=== PATIENT | female | born 1930 | race Caucasian/White ===

== ENCOUNTER 2017-04-14 09:35 | Observation (INO) | payer MEDICARE ==
[2017-04-14 10:42] LABS: Hematocrit 32 % (35-47); Hemoglobin 10.5 g/dl (12.0-16.0); Mean Corpuscular HGB Conc 33 g/dl (31-36); Mean Corpuscular Hemoglobin 31 pg (27-31); Mean Corpuscular Volume 94 fL (80-97); Mean Platelet Volume 11 um3 (7.4-10.4); Red Cell Distribution Width 14 % (10.5-15); White Blood Count 10.1 10^3/ul (3.5-10.8)
[2017-04-14 11:01] LABS: Albumin 4.1 g/dL (3.2-5.2); BUN/Creatinine Ratio 24.4 (8-20); Calcium 9.3 mg/dL (8.6-10.3); EGFR African American 84.8 (>60); EGFR Non-African American 65.9 (>60); Globulin 2.8 g/dL (2-4); Potassium 3.3 mmol/L (3.5-5.0); Total Bilirubin 0.4 mg/dL (0.2-1.0); Total Protein 6.9 g/dL (6.4-8.9)
[2017-04-14] MEDS ORDERED: Pantoprazole IV* 40 MG IV ONE (12:06)
[2017-04-14] MEDS ORDERED: Pantoprazole IV* 80 MG in NS 0.9% 250 ML* 250 ML IV SCH (13:00)
[2017-04-14] MEDS ORDERED: Ondansetron INJ* 2 MG/ML VIAL IV PRN (13:07)
[2017-04-14] MEDS ORDERED: Acetaminophen TAB* 325 MG PO PRN (13:07)
[2017-04-14] MEDS ORDERED: Potassium Chlor TAB* 20 MEQ TAB.ER PO ONE (13:10)
[2017-04-14 13:24] LABS: Urine Bacteria Absent (Absent); Urine Bilirubin Negative (Negative); Urine Glucose Negative (Negative); Urine Nitrite Negative (Negative)
[2017-04-14 13:43] LABS: Hematocrit 29 % (35-47); Hemoglobin 9.8 g/dl (12.0-16.0)
[2017-04-14] MEDS ORDERED: Pantoprazole IV* 80 MG in NS 0.9% 250 ML* 250 ML IVPB SCH (14:00)
--- NOTE | 2017-04-14 16:05 | HP ---
SUPERVISING PHYSICIAN ADDENDUM NOW INCLUDED ON THIS REPORT CC: Dr. Castle * ADMISSION HISTORY AND PHYSICAL: DATE OF ADMISSION: 04/14/17 PRIMARY CARE PROVIDER: Dr. Castle. ADMITTING PROVIDER: JAZIEL Jackson. SUPERVISING PHYSICIAN: Dr. Maryann Klein.* (DICTATED BY JAZIEL JACKSON) CHIEF COMPLAINT: Weakness and melena. HISTORY OF PRESENT ILLNESS: This is a very pleasant 86-year-old female with hypertension, hypothyroidism, macular degeneration who was referred from her primary care provider's office after being seen today with complaints of weakness, dizziness, and episode of melena that occurred over the weekend. 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 She has had no associated abdominal pain and no further bowel movement since that time. She has had complaints of weakness and dizziness since that time and had a syncopal episode following that bowel movement on Friday but none since. The patient denies any history of GI bleed. She is on daily aspirin therapy. No recent excessive NSAID use. No other acute symptoms. No recent illness including fever or night sweats. No chest pain or lower extremity edema or shortness of breath. No complaints of palpitations. The patient just has one alcoholic beverage daily and denies any recent binging. PAST MEDICAL HISTORY: 1. Hypertension. 2. Hypothyroidism. 3. Macular degeneration. PAST SURGICAL HISTORY: 1. Hysterectomy. 2. Bladder repair. 3. Bilateral total hip arthroplasty. HOME MEDICATIONS: 1. Vitamin C 500 mg p.o. daily. 2. Captopril 12.5 mg p.o. twice daily. 3. Lasix 20 mg p.o. daily. 4. Garlic 400 mg p.o. daily. 5. Levothyroxine 50 mcg p.o. daily. 6. Multivitamin two tablets p.o. twice daily. 7. Fish oil 1000 mg p.o. daily. 8. Metamucil 1 packet p.o. daily. SOCIAL HISTORY: The patient lives at home with her . 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 She has a glass of wine or other alcoholic beverage with dinner nightly. No significant smoking history. REVIEW OF SYSTEMS: As noted above in HPI. All other systems reviewed and negative. PHYSICAL EXAMINATION GENERAL: This is a very pleasant 86-year-old female accompanied by her who appears to be fatigued but is in no acute distress. INITIAL VITALS: Temperature 96.9 degrees Fahrenheit, pulse 96 beats per minute , respiratory rate 18 per minute, oxygen saturation 98% on room air, blood pressure 141/69 mmHg. Orthostatic vitals, lying position heart rate of 90, blood pressure 130/58; sitting heart rate 93, blood pressure 117/61; standing heart rate 103, blood pressure 129/61. HEENT: Head is normocephalic, atraumatic. Mucous membranes are pink and moist. RESPIRATORY: Lungs are clear to auscultation without wheezes, crackles or rhonchi. CARDIOVASCULAR: Heart has regular rate and rhythm without murmurs, rubs or gallops. ABDOMEN: Soft. Bowel sounds are quiet but present. There is no tenderness to palpation. EXTREMITIES: There is no edema appreciated. SKIN: Limited exam shows no concerning rashes or lesions. LABORATORY EVALUATION: CBC shows a white blood cell count of 10,100, hemoglobin of 10.5, platelet count of 284,000. INR of 0.92 and PTT of 27. Comprehensive metabolic panel shows a sodium of 139, potassium of 3.3, bicarb of 25, BUN of 20, creatinine of 0.82. Total bilirubin and transaminase is within normal limits. Troponin is 0. IMAGING: EKG shows a sinus rhythm without ischemic changes. ASSESSMENT AND PLAN: This is a pleasant 86-year-old female with hypertension, hypothyroidism, macular degeneration, who presents with complaints of weakness and melena admitted with concern for upper GI bleed. 1. Upper GI bleed - the patient's stool is heme positive in the emergency department. Hemoglobin at the time of admission is 10.1. We do not have any prior labs to compare to but she is hemodynamically stable. We will treat with a Protonix drip at this time and maintain a clear liquid diet. Consult call is out to GI for upper endoscopy. We will obtain serial hemoglobins every 6 hours. 2. Hypokalemia - the patient will receive appropriate replacement and plan to repeat the potassium with basic metabolic panel tomorrow. 3. Hypertension - the patient is normotensive at this time. We will hold her antihypertensives including diuretics and ROSE inhibitors in the setting of GI bleed. 4. Hypothyroidism - Plan to continue levothyroxine at current dose. 5. Code status. The patient is full code. 6. DVT prophylaxis. SCDs will be placed for chemical prophylaxis is contraindicated in the setting of acute bleeding. 7. Disposition: The patient is being admitted to observation status for upper GI bleed. I anticipate possible discharge tomorrow. JAZIEL JACKSON ADDENDUM: Mrs. Nichols is an 86-year-old female who presented complaining of melanotic stool today. Her hemoglobin is 10.5 today with unknown baseline. Her stool is heme positive. She had been on aspirin but no history of nonsteroidal antiinflammatory use. She is going to be admitted to the hospital, most likely be seen by GI. For further details of the patient's presentation and plan, please see history and physical dictated by Rahul Navarro on 04/14/17, with which I agree. MARYANN KLEIN MD [id number]/[facility] #: [id number]/[facility]PS #: [id number] JULIET
--- NOTE | 2017-04-14 16:05 | HP ---
HISTORY AND PHYSICAL:* ADDENDUM: Mrs. Nichols is an 86-year-old female who presented complaining of melanotic stool today. Her hemoglobin is 10.5 today with unknown baseline. Her stool is heme positive. She had been on aspirin but no history of nonsteroidal antiinflammatory use. She is going to be admitted to the hospital , most likely be seen by GI. For further details of the patient's presentation and plan, please see history and physical dictated by Rahul Navarro on 04/14/17 , with which I agree. [id number]/[facility] #: [id number] MTDD
--- NOTE | 2017-04-14 16:22 | CONS ---
CONSULTATION REPORT: DATE OF CONSULT: 04/14/17 INDICATION: Melena. NARRATIVE: Ms. Nichols is a very pleasant 86-year-old female with a history of hypertension and hypothyroid who takes a baby aspirin every day who noted melena on Friday. She states it was a very large stool. Since that point, she has felt dizzy and lightheaded. She came to the emergency room because of that. In the emergency room, she was found to have a hemoglobin of 10.5 which has subsequently fallen to 9.8. White count and platelets were normal. She denies any other nonsteroidals. No bright red blood. No nausea or vomiting. No hematemesis. She has never had GI bleeding before. PAST MEDICAL HISTORY: Please see the HPI. SURGICAL HISTORY: Includes hysterectomy. She had a colonoscopy in 2006 which showed sigmoid diverticulosis and a small polyp. MEDICATIONS: Include: 1. Synthroid. 2. Aspirin. 3. Tylenol. FAMILY HISTORY: No GI malignancies in the family. REVIEW OF SYSTEMS: Twelve systems reviewed. Other than that mentioned in the HPI were unremarkable. PHYSICAL EXAM: Vital Signs: Temperature is 98.0, blood pressure 138/81, pulse is 89, respiratory rate is 16, O2 sat is 99%. General: Well-appearing female in no apparent distress. Alert, oriented, pleasant, and fluent. HEENT: Mucous membranes are moist without lesions, ulcers, or exudate. Neck is supple. Trachea is midline. Head is normocephalic, atraumatic. Heart: Regular rate and rhythm. No murmurs. Lungs: Clear to auscultation. Abdomen: Positive bowel sounds. Soft, nontender, nondistended. No hepatosplenomegaly, masses, rebound, or guarding. Musculoskeletal: No CVA or spinal tenderness to palpation. DIAGNOSTIC STUDIES/LAB DATA: Of note, BUN is 20, creatinine 0.82, hemoglobin is 9.8. ASSESSMENT AND PLAN: This is a pleasant 86-year-old female who takes aspirin every day who was found to have melena and a decreased hemoglobin. I do wonder if she could have peptic ulcer disease. She has been started on Protonix already. I will make arrangements for an EGD tomorrow for her. [id number]/[facility] #: [id number] [facility]
[2017-04-14 19:32] LABS: Hematocrit 27 % (35-47); Hemoglobin 8.7 g/dl (12.0-16.0)
[2017-04-14] MEDS: Pantoprazole IV* 80 MG in NS 0.9% 250 ML* 250 ML IVPB SCH (23:34)
[2017-04-15 01:31] LABS: Hematocrit 28 % (35-47); Hemoglobin 9.4 g/dl (12.0-16.0)
[2017-04-15 05:06] LABS: Hematocrit 28 % (35-47); Hemoglobin 9.4 g/dl (12.0-16.0); Mean Corpuscular HGB Conc 33 g/dl (31-36); Mean Corpuscular Hemoglobin 31 pg (27-31); Mean Corpuscular Volume 93 fL (80-97); Mean Platelet Volume 10 um3 (7.4-10.4); Red Blood Count 3.01 10^6/ul (4.0-5.4); Red Cell Distribution Width 14 % (10.5-15); White Blood Count 10.6 10^3/ul (3.5-10.8)
[2017-04-15 05:29] LABS: BUN/Creatinine Ratio 18.7 (8-20); Calcium 8.6 mg/dL (8.6-10.3); EGFR Non-African American 73.1 (>60); Potassium 3.4 mmol/L (3.5-5.0)
[2017-04-15] MEDS ORDERED: Levothyroxine TAB* 50 MCG TAB PO SCH (06:00)
[2017-04-15] MEDS ORDERED: KCL 10 MEQ/50 ML IVPREMIX* 10 MEQ/50 ML BAG IV SCH (09:00)
[2017-04-15] MEDS: Pantoprazole IV* 80 MG in NS 0.9% 250 ML* 250 ML IVPB SCH (10:13)
[2017-04-15] MEDS ORDERED: Meperidine SYRINGE* 50 MG/ML ONE (15:03)
[2017-04-15] MEDS ORDERED: Midazolam* 1 MG/ML 10 ML VIAL (10 MG) ONE (15:03)
[2017-04-15] MEDS ORDERED: Potassium Chlor TAB* 20 MEQ TAB.ER PO ONE (16:24)
[2017-04-15 16:50] VITALS: BP 138/51
--- NOTE | 2017-04-15 23:04 | ED ---
Mandi Nuñez SooYoung, scribed for Shahid Hair MD on 04/14/17 at 1022 . Dizziness - HPI Summary HPI Summary: A 86 y/o F presents to ED referred from PCP with c/o weakness onset two days ago. Associated sx: tarry stools and watery diarrhea two days ago, only 1x and since resolved; syncopal episode from standing shortly after BM two days ago; continued weakness since then. No BM since then. Denies fever, chills, diaphoresis, abd pain, CP. notes she hasn't been eating much over the past two days. Pt takes HTN medication, is not taking blood thinners or NSAIDs. Takes ASA only when she has a MARLOW. Pt had a colonoscopy approx 5-6 years ago, and multiple polyps were removed. 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 Negative: Chest Pain, Fever, Chills - Allergies/Home Medications Allergies/Adverse Reactions: Allergies Allergy/AdvReac Type Severity Reaction Status Date / Time No Known Allergies Allergy Verified 04/14/17 09:45 Home Medications: Home Medications Ascorbic Acid TAB* [Vitamin C TAB*] 500 mg PO DAILY 04/14/17 [History Confirmed 04/14/17] Captopril TAB* [Capoten TAB*] 12.5 mg PO BID 04/14/17 [History Confirmed ] Furosemide TAB* [Lasix TAB*] 20 mg PO DAILY 04/14/17 [History Confirmed 04/14/17 ] Garlic 400 mg PO DAILY 04/14/17 [History Confirmed 04/14/17] Levothyroxine TAB* [Synthroid TAB*] 50 mcg PO DAILY 04/14/17 [History Confirmed 04/14/17] Multiple Vitamins W/ Minerals [Eye Vitamins & Minerals] 2 tab PO BID 04/14/17 [ History Confirmed 04/14/17] Multivitamins/Minerals TAB* [Theragran/minerals TAB*] 1 tab PO DAILY 04/14/17 [ History Confirmed 04/14/17] [place]lock-3 Fatty Acids (Nf) [Fish Oil (NF)] 1,000 mg PO DAILY 04/14/17 [History Confirmed 04/14/17] Psyllium ROBERTO* [Metamucil ROBERTO*] 1 pkt PO DAILY 04/14/17 [History Confirmed ] PMH/Surg Hx/FS Hx/Imm Hx Previously Healthy: No Endocrine/Hematology History: Reports: Hx Thyroid Disease - hypothyroidism Cardiovascular History: Reports: Hx Hypertension - Surgical History Surgery Procedure, Year, and Place: Hysterectomy Infectious Disease History: Denies: Traveled Outside the [place] in Last 30 Days - Family History Known Family History: Positive: Other - neg: colorectal CA - Social History Occupation: Retired Lives: With Family Alcohol Use: Daily Alcohol Amount: one drink with dinner Review of Systems Negative: Fever, Chills Negative: Erythema Negative: Sore Throat Negative: Chest Pain Negative: Shortness Of Breath, Cough Positive: Diarrhea, Other - pos: tarry stools. Negative: Abdominal Pain, Vomiting, Nausea Negative: dysuria, hematuria Negative: Myalgia, Edema Negative: Rash Neurological: Other - neg: dizziness Positive: Weakness, Syncope All Other Systems Reviewed And Are Negative: Yes Physical Exam - Summary Physical Exam Summary: Constitutional: Well-developed, Well-nourished, Alert. (-) Distressed Skin: Warm, Dry HENT: Normocephalic; Atraumatic Eyes: Conjunctiva normal Neck: Musculoskeletal ROM normal neck. (-) JVD, (-) Stridor, (-) Tracheal deviation Cardio: Rhythm regular, rate normal, Heart sounds normal; Intact distal pulses; The pedal pulses are 2+ and symmetric. Radial pulses are 2+ and symmetric. (-) Murmur Pulmonary/Chest wall: Effort normal. (-) Respiratory distress, (-) Wheezes, (-) Rales Abd: Soft, (-) Tenderness, (-) Distension, (-) Guarding, (-) Rebound RECTAL EXAM: PT BRINGS BAG OF MELANOTIC STOOL. NO EXTERNAL HEMORRHOIDS. SCANT AMOUNT OF ABRAM BLOOD ON FINGER. Musculoskeletal: (-) Edema Lymph: (-) Cervical adenopathy Neuro: Alert, Oriented x3 Psych: Mood and affect Normal Triage Information Reviewed: Yes Vital Signs On Initial Exam: Initial Vitals Temp Pulse Resp BP Pulse Ox 96.9 F 96 18 141/69 98 04/14/17 09:40 04/14/17 09:40 04/14/17 09:40 04/14/17 09:40 04/14/17 09:40 Vital Signs Reviewed: Yes Diagnostics - Vital Signs Vital Signs Temp Pulse Resp BP Pulse Ox 04/14/17 09:40 96.9 F 96 18 141/69 98 - Laboratory Lab Results: Lab Results 04/14/17 04/14/17 04/14/17 Range/Units 10:22 10:22 10:22 WBC 10.1 (3.5-10.8) 10^3/ul RBC 3.40 L (4.0-5.4) 10^6/ul Hgb 10.5 L (12.0-16.0) g/dl Hct 32 L (35-47) % MCV 94 (80-97) fL MCH 31 (27-31) pg MCHC 33 (31-36) g/dl RDW 14 (10.5-15) % Plt Count 284 (150-450) 10^3/ul MPV 11 H (7.4-10.4) um3 Neut % (Auto) 64.0 (38-83) % Lymph % (Auto) 25.8 (25-47) % [place] % (Auto) 6.9 (1-9) % Eos % (Auto) 2.1 (0-6) % Baso % (Auto) 1.2 (0-2) % Absolute Neuts (auto) 6.5 (1.5-7.7) 10^3/ul Absolute Lymphs (auto) 2.6 (1.0-4.8) 10^3/ul Absolute Monos (auto) 0.7 (0-0.8) 10^3/ul Absolute Eos (auto) 0.2 (0-0.6) 10^3/ul Absolute Basos (auto) 0.1 (0-0.2) 10^3/ul Absolute Nucleated RBC 0 10^3/ul Nucleated RBC % 0 INR (Anticoag Therapy) 0.92 (0.89-1.11) APTT 27.0 (26.0-36.3) seconds Sodium 139 (133-145) mmol/L Potassium 3.3 L (3.5-5.0) mmol/L Chloride 106 (101-111) mmol/L Carbon Dioxide 25 (22-32) mmol/L Anion Gap 8 (2-11) mmol/L BUN 20 (6-24) mg/dL Creatinine 0.82 (0.51-0.95) mg/dL Est GFR ( Amer) 84.8 (>60) Est GFR (Non-Af Amer) 65.9 (>60) BUN/Creatinine Ratio 24.4 H (8-20) Glucose 106 H (70-100) mg/dL Calcium 9.3 (8.6-10.3) mg/dL Total Bilirubin 0.40 (0.2-1.0) mg/dL AST 21 (13-39) U/L ALT 19 (7-52) U/L Alkaline Phosphatase 57 (34-104) U/L Troponin I 0.00 (<0.04) ng/mL Total Protein 6.9 (6.4-8.9) g/dL Albumin 4.1 (3.2-5.2) g/dL Globulin 2.8 (2-4) g/dL Albumin/Globulin Ratio 1.5 (1-3) Urine Color Urine Appearance Urine pH (5-9) Ur Specific [place] (1.010-1.030) Urine Protein (Negative) Urine Ketones (Negative) Urine Blood (Negative) Urine Nitrate (Negative) Urine Bilirubin (Negative) Urine Urobilinogen (Negative) Ur Leukocyte Esterase (Negative) Urine WBC (Auto) (Absent) Urine RBC (Auto) (Absent) Ur Squamous Epith Cells (Absent) Urine Bacteria (Absent) Urine Glucose (Negative) 04/14/17 Range/Units 11:07 WBC (3.5-10.8) 10^3/ul RBC (4.0-5.4) 10^6/ul Hgb (12.0-16.0) g/dl Hct (35-47) % MCV (80-97) fL MCH (27-31) pg MCHC (31-36) g/dl RDW (10.5-15) % Plt Count (150-450) 10^3/ul MPV (7.4-10.4) um3 Neut % (Auto) (38-83) % Lymph % (Auto) (25-47) % [place] % (Auto) (1-9) % Eos % (Auto) (0-6) % Baso % (Auto) (0-2) % Absolute Neuts (auto) (1.5-7.7) 10^3/ul Absolute Lymphs (auto) (1.0-4.8) 10^3/ul Absolute Monos (auto) (0-0.8) 10^3/ul Absolute Eos (auto) (0-0.6) 10^3/ul Absolute Basos (auto) (0-0.2) 10^3/ul Absolute Nucleated RBC 10^3/ul Nucleated RBC % INR (Anticoag Therapy) (0.89-1.11) APTT (26.0-36.3) seconds Sodium (133-145) mmol/L Potassium (3.5-5.0) mmol/L Chloride (101-111) mmol/L Carbon Dioxide (22-32) mmol/L Anion Gap (2-11) mmol/L BUN (6-24) mg/dL Creatinine (0.51-0.95) mg/dL Est GFR ( Amer) (>60) Est GFR (Non-Af Amer) (>60) BUN/Creatinine Ratio (8-20) Glucose (70-100) mg/dL Calcium (8.6-10.3) mg/dL Total Bilirubin (0.2-1.0) mg/dL AST (13-39) U/L ALT (7-52) U/L Alkaline Phosphatase (34-104) U/L Troponin I (<0.04) ng/mL Total Protein (6.4-8.9) g/dL Albumin (3.2-5.2) g/dL Globulin (2-4) g/dL Albumin/Globulin Ratio (1-3) Urine Color Yellow Urine Appearance Clear Urine pH 5.0 (5-9) Ur Specific [place] 1.006 L (1.010-1.030) Urine Protein Negative (Negative) Urine Ketones Negative (Negative) Urine Blood Negative (Negative) Urine Nitrate Negative (Negative) Urine Bilirubin Negative (Negative) Urine Urobilinogen Negative (Negative) Ur Leukocyte Esterase 2+ H (Negative) Urine WBC (Auto) 3+(>20/hpf) H (Absent) Urine RBC (Auto) Absent (Absent) Ur Squamous Epith Cells Present H (Absent) Urine Bacteria Absent (Absent) Urine Glucose Negative (Negative) Result Diagrams: 04/15/17 04:56 04/15/17 04:56 Lab Statement: Any lab studies that have been ordered have been reviewed, and results considered in the medical decision making process. - EKG 1 EKG Interpretation: Sinus arrhythmia, 88 bpm, no STEMI, read at 1002 Dizzy Course/Dx - Course Course Of Treatment: Pt is an 86 y/o F presenting with c/o weakness onset two days ago. Associated sx: tarry stools and watery diarrhea two days ago, only 1x and since resolved; syncopal episode from standing shortly after that BM; continued weakness since then. Decreased PO intake. No BM since then. Denies fever, chills, diaphoresis, abd pain, CP. Pt takes HTN medication, ASA only for MARLOW. No blood thinners or NSAIDs. Colonoscopy approx 5-6 years ago, and multiple polyps were removed. Pt given fluids, protonix, pantoprazole in ED. Trop is 0.00. EKG shows sinus arrhythmia, 88 bpm, no STEMI. Stool sample is positive for blood. Spoke with Dr. Woody, hospitalist at 1226, will admit pt. - Diagnoses Provider Diagnoses: GI bleeding, Bloody diarrhea - Provider Notifications Discussed Care Of Patient With: Brandon Woody - hospitalist Time Discussed With Above Provider: 12:26 Instructed by Provider To: Admit As Inpatient Discharge - Discharge Plan Condition: Stable Disposition: ADMITTED TO [facility] The documentation as recorded by the Mandi neal SooYoung accurately reflects the service I personally performed and the decisions made by me, Shahid Hair MD.
--- NOTE | 2017-04-16 06:25 | PRO ---
DATE OF PROCEDURE: 04/15/17 - ROOM #[id number] REFERRING PHYSICIAN: Robert Castle MD * PROCEDURE: Upper gastrointestinal endoscopy and gastric biopsy for CLOtest INDICATION: This 86-year-old woman came to the hospital yesterday after she reported an episode of gastrointestinal bleeding occurring at 3 a.m. Friday morning. She has never had gastrointestinal bleeding before. Prior colonoscopies have shown some diverticulosis. She had not had any gastrointestinal problems recently. She does take a baby aspirin. She had had a very busy week hosting 3 dinner parties, but otherwise had felt fine. She had gone to bed sleeping just fine Friday night and at 3 a.m. awakened with a sense of urgency. She passed a large amount of bloody stool. She was there on the toilet for an extended period and then felt dizzy. Her assisted her back to bed. The next day nothing happened. She was feeling weak but had no further stools. There never was any dyspepsia or vomiting. The succeeding day, Friday, 04/13, likewise she felt weak, but had no further stools. She called Dr. Castle's office on Friday, 04/14, and again had not had any further stools. He sent her in to be admitted. Her hemoglobin was in the upper 9s with no prior values at [facility]. It has not changed. Her admitting BUN of 20 went down to 14. She does not take any NSAIDs. The aspirin is taken prophylactically for maybe in the last 6 to 7 years. ENDOSCOPIST: Dr. Arizmendi MEDICATIONS: Midazolam 2 mg, meperidine 12.5. FINDINGS: She is an older woman in no overt distress. She appears quite comfortable. Reversal on the DNR form temporarily was done. EGD: Larynx - not seen. Esophagus - easily entered. The mucosa is normal in the upper, mid, and lower esophagus with the EG junction showing no signs of chronic peptic trouble at 38 cm. There was no hiatal hernia. Stomach - generalized erythema. It is mild with some miniscule erosions in the antrum. In the prepyloric antrum, there were 3 ulcers at 10, noon, and 2 o' clock. They all had clean bases. There was no bleeding and no stigmata of bleeding. There were definite ulcerations. The pylorus was patent and normal. Duodenum - normal bulb in 2nd through 4th portions. During withdrawal, a CLOtest was taken of the gastric body. IMPRESSION: 1. Mild diffuse gastritis, lower one-half of the stomach. 2. Prepyloric gastric ulcers - possible source of bleeding 3 days ago though this cannot be proven. 3. Gastrointestinal bleeding - agree with presuming the ulcers are responsible , treating with a PPI, and then only restarting aspirin if there is a compelling indication to do so, in which case she could be on a standard dose of omeprazole 20 mg plus the baby aspirin 3 times a week. For the moment, there appears to be no compelling reason to continue aspirin. [id number]/[facility] #: [id number] [facility]
--- NOTE | 2017-04-16 08:21 | DS ---
CC: Dr. Castle * DISCHARGE SUMMARY: DATE OF ADMISSION: 04/14/17 DATE OF DISCHARGE: 04/15/17 PRIMARY CARE PROVIDER: Robert Castle MD CONSULTING HISTORICAL MANUSCRIPTS CURATOR: Luciano Avilez MD DISCHARGING PROVIDER: JAZIEL Jackson SUPERVISING PHYSICIAN: Maryann Klein MD * (dictated by JAZIEL Jackson) PRIMARY DISCHARGE DIAGNOSES: 1. Upper gastrointestinal bleed with peptic ulcer disease identified on endoscopy. 2. Hypokalemia - replaced orally and IV. 3. Urinary tract infection - 75,000 to 10,000 colonies of Escherichia coli, final sensitivities pending at the time of discharge. SECONDARY DISCHARGE DIAGNOSES: 1. Hypertension. 2. Hypothyroidism. DISCHARGE MEDICATIONS: 1. Vitamin C 500 mg p.o. daily. 2. Captopril 12.5 mg p.o. twice daily. 3. Lasix 20 mg p.o. daily. 4. Garlic 400 mg p.o. daily. 5. Levothyroxine 50 mcg p.o. daily. 6. Multivitamin 2 tablets p.o. twice daily. 7. Fish oil 1000 mg p.o. daily. 8. Omeprazole 20 mg p.o. daily. 9. Metamucil 1 packet p.o. daily. 10. Bactrim DS 1 tablet p.o. b.i.d. x3 days. Medication Changes: 1. Discontinue aspirin. 2. Start omeprazole. 3. Bactrim x3 days. HOSPITAL IMAGING: EKG shows sinus rhythm without ischemic change. HOSPITAL COURSE: This is an 86-year-old female with hypertension and hypothyroidism, who presented to the emergency department with complaints of weakness and an episode of melena that had occurred approximately 2 days prior to admission. The patient was seen by her primary care provider earlier in the day with the above complaints who referred her to the emergency department for further evaluation. 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 She had no associated abdominal pain, but complained of progressive weakness since that time. When she reached the emergency department, her initial hemoglobin was 10.5 g/dL. Unfortunately, there was no old hemoglobin available for comparison. She was hemodynamically stable and appeared quite well with the benign abdominal exam. The patient was subsequently admitted to period of observation and started on a Protonix drip. She underwent upper endoscopy with Dr. Arizmendi, which demonstrated 2 small ulcerations in the prepyloric area, but there was no evidence of active or recent bleeding. Serial hemoglobins were monitored, which remained stable and her hemoglobin is 9.4 at the time of discharge. She had no further bowel movements during her hospital stay. Also of note, the urinalysis demonstrated 2+ leuko esterase and 3+ white blood cells. Urine culture was subsequently performed which demonstrated 75% to 100% colonies of E. coli. The patient denied any urinary symptoms, but decision was made to empirically treat for UTI given her complaints of weakness, which may also have been attributable to her GI bleed. DISCHARGE PLAN AND FOLLOWUP: The patient is being discharged to home, where she lives with her . Recommend discontinuing her aspirin at this time. Recommend further discussion with her primary care provider whether aspirin should be resumed in the future, but she has no absolute reason that she remain on aspirin at this time. Recommend 3 days of treatment for an uncomplicated urinary tract infection with Bactrim. Final sensitivities are pending at the time of discharge and require followup to ensure appropriate effectiveness of empiric treatment with Bactrim. JAZIEL JACKSON [id number]/[facility] #: [id number] JULIET
== END 2017-04-15 18:41 | disposition home or self-care (01) ==
LOC: ED 09:35 → MEDTELE 12:41
PROVIDERS: ADMIT Internal Medicine; ATTEND Internal Medicine
PROC: 0DJ68ZZ Inspection of Stomach, Via Natural or Artificial Opening Endoscopic (ICD-10-PCS; principal; 2017-04-15)
DX: K92.2 Gastrointestinal hemorrhage, unspecified (principal); K27.4 Chronic or unspecified peptic ulcer, site unspecified, with hemorrhage; E87.6 Hypokalemia; N39.0 Urinary tract infection, site not specified; I10 Essential (primary) hypertension; E03.9 Hypothyroidism, unspecified; K92.1 Melena; R19.7 Diarrhea, unspecified; R53.1 Weakness; R55 Syncope and collapse
CPT/HCPCS: 36415; 80048; 80053; 81003; 81015; 82270; 83735; 84484; 85014; 85018; 85025; 85610; 85730; 87077; 87086; 87186; 93005; 99284; A9270-GY; G0378; J2250; J3480

== ENCOUNTER 2019-01-30 11:18 | Emergency (ER) | payer MEDICARE ==
--- NOTE | 2019-01-30 11:35 | ED ---
Adult Trauma - HPI Summary HPI Summary: This patient is a 88 year old F brought in by EMS with a chief complaint of fall since just [employer]. She landed on soft carpet. Patient reports dizziness and left leg pain. Patient denies CP, MARLOW, SOB, blurry vision, or LOC. The patient also fell two days ago. She does not use oxygen at home. She has not eaten today. The patient is not presently dizzy while in the ED and is able to ambulate around the room on her own. - History of Current Complaint Chief Complaint: EDFall Stated Complaint: DIZZY PER EMS Hx Obtained From: Patient Mechanism of Injury: Fall Loss of Consciousness: no loss of consciousness Onset/Duration: Started Hours Ago Current Severity: None Pain Intensity: 0 Pain Scale Used: 0-10 Numeric - Additional Pertinent History Primary Care Physician: MERCEDES - Allergy/Home Medications Allergies/Adverse Reactions: Allergies Allergy/AdvReac Type Severity Reaction Status Date / Time No Known Allergies Allergy Verified 01/30/19 11:29 PMH/Surg Hx/FS Hx/Imm Hx Endocrine/Hematology History: Reports: Hx Thyroid Disease - hypothyroidism Cardiovascular History: Reports: Hx Angioplasty, Hx Hypertension GI History: Reports: Hx Irritable Bowel History: Reports: Other Problems/Disorders - cystocele Musculoskeletal History: Reports: Hx Arthritis - hands and back Sensory History: Reports: Hx Contacts or Glasses, Hx Hearing Aid Opthamlomology History: Reports: Hx Contacts or Glasses - Surgical History Surgery Procedure, Year, and Place: Hysterectomy Infectious Disease History: No Infectious Disease History: Denies: Traveled Outside the [place] in Last 30 Days - Family History Known Family History: Positive: Other - neg: colorectal CA - Social History Alcohol Use: Daily Alcohol Amount: one drink with dinner Substance Use Type: Reports: None Smoking Status (MU): Former Smoker Review of Systems Negative: Blurred Vision Negative: Chest Pain Negative: Shortness Of Breath Musculoskeletal: Other - fall Positive: Myalgia - left leg pain Neurological: Negative - LOC Negative: Headache All Other Systems Reviewed And Are Negative: Yes Physical Exam - Summary Physical Exam Summary: VITAL SIGNS: Reviewed. GENERAL: Patient is an elderly female who is lying comfortable in the stretcher. Patient is not in any acute respiratory distress. HEAD AND FACE: No signs of trauma. No ecchymosis, hematomas or skull depressions. No sinus tenderness. EYES: PERRLA, EOMI x 2, No injected conjunctiva, no nystagmus. EARS: Hearing grossly intact. Ear canals and tympanic membranes are within normal limits. MOUTH: Oropharynx within normal limits. NECK: Supple, trachea is midline, no adenopathy, no JVD, no carotid bruit, no c- spine tenderness, neck with full ROM. CHEST: Symmetric, no tenderness at palpation LUNGS: Clear to auscultation bilaterally. No wheezing or crackles. CVS: Regular rate and rhythm, S1 and S2 present, no murmurs or gallops appreciated. ABDOMEN: Soft, non-tender. No signs of distention. No rebound no guarding, and no masses palpated. Bowel sounds are normal. EXTREMITIES: FROM in all major joints, no edema, no cyanosis or clubbing. She is able to ambulate on her own with a little pain in her left leg, secondary to pain in her left knee. NEURO: Alert and oriented x 3. No acute neurological deficits. Speech is normal and follows commands. SKIN: Dry and warm GCS: 15 Triage Information Reviewed: Yes Vital Signs On Initial Exam: Initial Vitals Temp Pulse Resp BP Pulse Ox 98.8 F 88 15 190/95 98 01/30/19 11:23 01/30/19 11:23 01/30/19 11:23 01/30/19 11:23 01/30/19 11:23 Vital Signs Reviewed: Yes Diagnostics - Vital Signs Vital Signs Temp Pulse Resp BP Pulse Ox 01/30/19 11:23 98.8 F 88 15 190/95 98 - Laboratory Result Diagrams: 01/30/19 11:45 01/30/19 11:45 Lab Statement: Any lab studies that have been ordered have been reviewed, and results considered in the medical decision making process. - Radiology CXR Radiology Interpretation Completed By: Radiologist Summary of Radiographic Findings: No radiographic evidence of acute cardiopulmonary disease. ED physician has reviewed this report. LE x ray Radiology Interpretation Completed By: Radiologist Summary of Radiographic Findings: Chronic findings as described above without radiographically apparent acute fracture or. other radiographically apparent abnormality. ED physician has reviewed this report knee x ray Radiology Interpretation Completed By: Radiologist Summary of Radiographic Findings: Degenerative findings as described above in this single AP view of the left. knee. ED physician has reviewed this report - CT Brain CT Interpretation Completed By: Radiologist Summary of CT Findings: 1. No CT apparent acute intracranial abnormality. 2. Mild paranasal sinus mucosal disease similar in appearance to prior brain CT. ED physician has reviewed this report. - EKG 11:30 Cardiac Rate: NL - 90 bpm EKG Rhythm: Sinus Rhythm ST Segment: Normal Summary of EKG Findings: Normal axis, multiple PVCs Adult Trauma Course/Dx - Course Assessment/Plan: This patient is a 88-year-old female who presents to the emergency department with a chief complaint of having dizziness. Patient reports that she had an episode of dizziness this morning however it has resolved. Patient has no other complaints. Denies any chest pains or heart palpitations. Patient denies any headache or visual disturbances. The patient is able to ambulate at home without any dizziness. The patient is complaining of left knee and left leg pain. Blood tests without any significant abnormality except for WBCs of 10.9, glucose 107, BNP is 323. Urinalysis contaminated however the patient has increased wbcs and she reports as slightly disoriented therefore the patient was placed in ciprofloxacin. Head CT impression: No CT apparent acute intracranial abnormality. Mild paranasal sinus mucosal disease similar to in appearance to prior brain CT. Chest x-ray impression: No radiographic evidence of acute cardiopulmonary disease. X-ray of the knee and the lower extremity impression: Chronic findings without any apparent acute fracture or dislocation. In the ED course the patient is feeling better. Patient has no other complaints. Patients dizziness has not returned in the emergency department. The patient is ambulating and has no other complaints. - Diagnoses Provider Diagnoses: UTI (urinary tract infection), Dizziness, Fall, Leg pain Discharge - Sign-Out/Discharge Documenting (check all that apply): Patient Departure - discharge Patient Received Moderate/Deep Sedation with Procedure: No - Discharge Plan Condition: Stable Disposition: HOME Prescriptions: Ciprofloxacin TAB* [Cipro 250 MG Tab*] 250 mg PO BID #6 tab Patient Education Materials: Urinary Tract Infection in Women (ED) Referrals: Robert Castle MD [Primary Care Provider] - 3 Days Additional Instructions: Follow up with Dr. Castle in 2-3 days. RETURN TO THE ED FOR ANY WORSENING OR NEW SYMPTOMS. - Billing Disposition and Condition Condition: STABLE Disposition: Home - Attestation Statements Document Initiated by Scribe: Yes Documenting Scribe: Mynor Gruber Provider For Whom Scribe is Documenting (Include Credential): Too Pittman MD Scribe Attestation: I, Mynor Gruber, scribed for Too Pittman MD on 01/30/19 at 1825. Scribe Documentation Reviewed: Yes Provider Attestation: The documentation as recorded by the scribe, Mynor Gruber accurately reflects the service I personally performed and the decisions made by me, Too Pittman MD Status of Scribe Document: Viewed
[2019-01-30 11:52] LABS: ABS Basophils 0.1 10^3/ul (0-0.2); ABS Eosinophils 0.5 10^3/ul (0-0.6); ABS Lymphocytes 2.1 10^3/ul (1.0-4.8); ABS Monocytes 0.9 10^3/ul (0-0.8); ABS Neutrophils 7.5 10^3/ul (1.5-7.7); ABS Nucleated RBC 0 10^3/ul; Eosinophil % 4.1 %; Hematocrit 43 % (33-41); Hemoglobin 14.3 g/dL (12.0-16.0); Lymphocyte % 18.7 %; Mean Corpuscular HGB Conc 33 g/dL (31-36); Mean Corpuscular Hemoglobin 32 pg (27-31); Mean Corpuscular Volume 95 fL (80-97); Nucleated Red Blood Cells % 0; Platelet Count 314 10^3/uL (150-450); Red Blood Count 4.54 10^6 /uL (3.70-4.87); Red Cell Distribution Width 13 % (10.5-15); White Blood Count 10.9 10^3/uL (3.5-10.8)
[2019-01-30 12:11] LABS: Albumin 4.4 g/dL (3.2-5.2); Albumin/Globulin Ratio 1.5 (1-3); C Reactive Protein 4.19 mg/L (<8.01); Calcium 9.9 mg/dL (8.6-10.3); EGFR African American 79.4 (>60); EGFR Non-African American 65.6 (>60); Magnesium 2.1 mg/dL (1.9-2.7); Potassium 4.1 mmol/L (3.5-5.0); Total Bilirubin 0.4 mg/dL (0.2-1.0); Total Protein 7.4 g/dL (6.4-8.9)
[2019-01-30 12:12] LABS: Troponin I 0.01 ng/mL (<0.04)
[2019-01-30 13:14] LABS: TSH (Thyroid Stimulating Horm) 6.42 mcIU/mL (0.34-5.60)
[2019-01-30 14:06] LABS: Urine Appearance Cloudy; Urine Bacteria Absent (Absent); Urine Bilirubin Negative (Negative); Urine Blood Negative (Negative); Urine Color Yellow; Urine Glucose Negative (Negative); Urine Ketones Negative (Negative); Urine Nitrite Negative (Negative); Urine Protein Negative (Negative); Urine Red Blood Cell 1+(3-5/hpf) (Absent); Urine Specific Gravity 1.006 (1.010-1.030); Urine Squamous Epithelial Cell Present (Absent); Urine Urobilinogen Negative (Negative); Urine White Blood Cell 1+(6-10/hpf) (Absent)
[2019-01-30] MEDS ORDERED: Ciprofloxacin TAB* 500 MG PO ONE (14:07)
[2019-01-30 14:45] VITALS: BP 170/99
--- NOTE | 2019-02-01 11:44 | PN ---
Progress Note - Progress Note Date of Service: 01/30/19 Note: Pt. started on Cipro 01/30 for UTI. Final urine culture growing >100k susceptible to Cipro. No change in treatment plan needed at this time.
== END 2019-01-30 14:47 | disposition home or self-care (01) ==
LOC: ED 11:18
DX: N39.0 Urinary tract infection, site not specified (principal); R42 Dizziness and giddiness; M79.605 Pain in left leg; I10 Essential (primary) hypertension; E03.9 Hypothyroidism, unspecified; Z87.891 Personal history of nicotine dependence
CPT/HCPCS: 36415; 70450; 71046; 80053; 81003; 81015; 82550; 83605; 83735; 83880; 84443; 84484; 85025; 86140; 87077; 87086; 87186; 93005; 99284; A9270-GY

== ENCOUNTER 2019-02-05 13:51 | Inpatient (IN) | payer MEDICARE ==
--- NOTE | 2019-02-05 13:57 | ED ---
HPI Chest Pain - HPI Summary HPI Summary: 88 year old F brought in by [facility] ambulance to [facility] complains of midsternal chest pain described as pressure initially rated 9/10 since this morning. EMS administered 1 aspirin and 3 NTG which provided relief. Symptoms aggravated by nothing. Symptoms alleviated by nothing. Patient reports shortness of breath. Patient denies nausea, vomiting, dizziness, diarrhea, constipation. EMS denies pedal edema. Patient was seen in ED on 01/30/19 for bilateral leg pain and weakness d/t mechanical fall not resulting in syncope. - History of Current Complaint Time Seen by Provider: 02/05/19 13:52 Hx Obtained From: Patient, EMS Onset/Duration: Started Hours Ago - this morning, Still Present Timing: Constant Initial Severity: Severe - 9/10 Current Severity: Moderate Chest Pain Location: Mid Sternal Character: Pressure/Squeezing Aggravating Factor(s): Nothing Alleviating Factor(s): Nothing Associated Signs and Symptoms: Positive: Negative - nausea, vomiting, dizziness , diarrhea, constipation, pedal edema, Shortness of Breath - Additional Pertinent History Primary Care Physician: MERCEDES - Allergy/Home Medications Allergies/Adverse Reactions: Allergies Allergy/AdvReac Type Severity Reaction Status Date / Time No Known Allergies Allergy Verified 02/05/19 13:58 Home Medications: Home Medications Dicyclomine CAP* [Bentyl CAP*] 20 mg PO TID PRN 02/05/19 [History Confirmed 10/14] Furosemide TAB* [Lasix TAB*] 20 mg PO DAILY 02/05/19 [History Confirmed 02/05/19 ] Levothyroxine TAB* [Synthroid TAB*] 50 mcg PO DAILY 02/05/19 [History Confirmed 02/05/19] Multivitamins/Minerals TAB* [Theragran/minerals TAB*] 1 tab PO DAILY 02/05/19 [ History Confirmed 02/05/19] Om3-Dha/Epa/D3/Lutein/Zeazanth [Eye [place] Advantage/Vitam] 2 cap PO BID [History Confirmed 02/05/19] Ranitidine TAB (NF) [Zantac TAB (NF)] 300 mg PO DAILY 02/05/19 [History Confirmed 02/05/19] traMADol TAB* [Ultram*] 50 mg PO Q6HR PRN 02/05/19 [History Confirmed 02/05/19] PMH/Surg Hx/FS Hx/Imm Hx Previously Healthy: No Endocrine/Hematology History: Reports: Hx Thyroid Disease - hypothyroidism Cardiovascular History: Reports: Hx Angioplasty, Hx Hypertension GI History: Reports: Hx Irritable Bowel History: Reports: Other Problems/Disorders - cystocele Musculoskeletal History: Reports: Hx Arthritis - hands and back Sensory History: Reports: Hx Contacts or Glasses, Hx Hearing Aid Opthamlomology History: Reports: Hx Contacts or Glasses - Surgical History Surgery Procedure, Year, and Place: Hysterectomy - Family History Known Family History: Positive: Other - neg: colorectal CA - Social History Alcohol Use: Daily Alcohol Amount: one drink with dinner Hx Substance Use: No Substance Use Type: Reports: None Hx Tobacco Use: Yes Smoking Status (MU): Former Smoker Review of Systems Positive: Chest Pain Positive: Shortness Of Breath Gastrointestinal: Negative - Constipation Negative: Vomiting, Diarrhea, Nausea Negative: Edema Neurological: Negative - Dizziness All Other Systems Reviewed And Are Negative: Yes Physical Exam - Summary Physical Exam Summary: VITAL SIGNS: Reviewed. GENERAL: Patient is a well-developed and nourished FEMALE who is lying comfortable in the stretcher. Patient is not in any acute respiratory distress. HEAD AND FACE: No signs of trauma. No ecchymosis, hematomas or skull depressions. No sinus tenderness. EYES: PERRLA, EOMI x 2, No injected conjunctiva, no nystagmus. EARS: Hearing grossly intact. Ear canals and tympanic membranes are within normal limits. MOUTH: Oropharynx within normal limits. NECK: Supple, trachea is midline, no adenopathy, no JVD, no carotid bruit, no c- spine tenderness, neck with full ROM. CHEST: Symmetric, no tenderness at palpation LUNGS: Clear to auscultation bilaterally. No wheezing or crackles. CVS: Regular rate and rhythm, S1 and S2 present, no murmurs or gallops appreciated. ABDOMEN: Soft, non-tender. No signs of distention. No rebound no guarding, and no masses palpated. Bowel sounds are normal. EXTREMITIES: FROM in all major joints, no edema, no cyanosis or clubbing. NEURO: Alert and oriented x 3. No acute neurological deficits. Speech is normal and follows commands. SKIN: Dry and warm Triage Information Reviewed: Yes Vital Signs Reviewed: Yes Diagnostics - Laboratory Result Diagrams: 02/05/19 14:36 02/05/19 14:36 Lab Statement: Any lab studies that have been ordered have been reviewed, and results considered in the medical decision making process. - Radiology CXR Radiology Interpretation Completed By: Radiologist Summary of Radiographic Findings: NO ACTIVE CARDIOPULMONARY DISEASE. ED physician has reviewed this report. - EKG 1421 Cardiac Rate: Tachycardia - 118 BPM EKG Rhythm: Sinus Tachycardia Summary of EKG Findings: Sinus tachycardia at 118 BPM with multiple PVCs. I think she is in bigeminy 1634 Cardiac Rate: Tachycardia - 118 BPM EKG Rhythm: Sinus Tachycardia Summary of EKG Findings: Sinus tachycardia at 118 BPM with ventricular bigeminy Chest Pain Course/Dx - Course Assessment/Plan: This patient is an 88-year-old female who presents to the emergency department via ambulance with chief complaint of having chest pain. Prior to arrival EMS gave the patient aspirin and 3 nitroglycerin. The patient reports that the pain has significantly improved. Test results without any significant abnormality except for WBCs of 16.8, sodium 132, chloride 100, glucose 119, troponin 0.43, BNP 629. EKG is a normal sinus rhythm with multiple PVCs likely in bigeminy. Chest x-ray impression: No active cardiopulmonary disease. In the ED course the patient was given metoprolol, nitroglycerin patch, heparin since the patient developed chest pain again at slight exertion. Also the troponin is elevated therefore I believe that the patient has a NSTEMI. Dr. Porter came and examined the patient and after his assessment he recommends for the patient to be placed on heparin drip and nitroglycerin drip. He also discussed the case with interventional cardiology and they recommend no cath at this time. They recommend admission to the hospitalist. I discussed the case with Dr. Suazo from the hospitalist services who accepted the patient for admission. - Chest Pain Differential Diagnosis/HQI/PQRI: Acute [place], ACS, Angina, Aortic Aneurysm, CHF, Chest Wall, GI Disease, Lower Respiratory Infection - Diagnoses Provider Diagnoses: NSTEMI (non-ST elevated myocardial infarction) - Provider Notifications Discussed Care Of Patient With: Mook Porter Time Discussed With Above Provider: 16:46 Instructed by Provider To: Other - Dr. Porter, cardiology, will come see the patient. At 1725, Dr. Mauser does not think patient needs catheterization but recommends admission to hospitalist. Dr. Suazo, hospitalist, accepts patient for admission at 1729. - Critical Care Time Critical Care Time: 75-104 min Discharge - Sign-Out/Discharge Documenting (check all that apply): Patient Departure - Admit Patient Received Moderate/Deep Sedation with Procedure: No - Discharge Plan Condition: Stable Disposition: ADMITTED TO [facility] - Billing Disposition and Condition Condition: STABLE Disposition: Admitted to [facility] - Attestation Statements Document Initiated by Scribe: Yes Documenting Scribe: Tala Valdez Provider For Whom Cathiee is Documenting (Include Credential): Too Pittman MD Scribe Attestation: I, Tala Valdez, scribed for Too Pittman MD on 02/05/19 at 1904. Scribe Documentation Reviewed: Yes Provider Attestation: The documentation as recorded by the scribeTala accurately reflects the service I personally performed and the decisions made by me, Too Pittman MD Status of Scribe Document: Viewed
[2019-02-05 14:56] LABS: ABS Basophils 0.2 10^3/ul (0-0.2); ABS Eosinophils 0.1 10^3/ul (0-0.6); ABS Lymphocytes 1.6 10^3/ul (1.0-4.8); ABS Monocytes 1.5 10^3/ul (0-0.8); ABS Neutrophils 13.5 10^3/ul (1.5-7.7); ABS Nucleated RBC 0 10^3/ul; Eosinophil % 0.3 %; Hematocrit 38 % (33-41); Hemoglobin 12.9 g/dL (12.0-16.0); Lymphocyte % 9.5 %; Mean Corpuscular HGB Conc 34 g/dL (31-36); Mean Corpuscular Hemoglobin 32 pg (27-31); Mean Corpuscular Volume 94 fL (80-97); Mean Platelet Volume 10.5 fL (7.4-10.4); Nucleated Red Blood Cells % 0; Platelet Count 312 10^3/uL (150-450); Red Blood Count 4.03 10^6 /uL (3.70-4.87); Red Cell Distribution Width 13 % (10.5-15); White Blood Count 16.8 10^3/uL (3.5-10.8)
[2019-02-05 15:13] LABS: ALT 15 U/L (7-52); AST 16 U/L (13-39); Albumin 3.8 g/dL (3.2-5.2); Albumin/Globulin Ratio 1.3 (1-3); Alkaline Phosphatase 62 U/L (34-104); Anion Gap 7 mmol/L (2-11); BUN/Creatinine Ratio 23.5 (8-20); Blood Urea Nitrogen 16 mg/dL (6-24); CO2 Carbon Dioxide 25 mmol/L (22-32); Chloride 100 mmol/L (101-111); Creatine Kinase 70 U/L (10-223); EGFR African American 98.6 (>60); EGFR Non-African American 81.5 (>60); Globulin 2.9 g/dL (2-4); Glucose 119 mg/dL (70-100); Magnesium 1.9 mg/dL (1.9-2.7); Sodium 132 mmol/L (135-145); Total Protein 6.7 g/dL (6.4-8.9)
[2019-02-05 15:16] LABS: CKMB ng/mL 2.1 ng/mL (0.6-6.3)
[2019-02-05 15:20] LABS: Troponin I 0.43 ng/mL (<0.04)
[2019-02-05 15:25] LABS: TSH (Thyroid Stimulating Horm) 4.09 mcIU/mL (0.34-5.60)
[2019-02-05] MEDS ORDERED: Heparin for STEMI(*) 5,000 UNITS/ML 1 ML VIAL IV ONE (16:38)
[2019-02-05] MEDS ORDERED: Metoprolol Tartrate TAB* 50 mg PO ONE (16:39)
[2019-02-05] MEDS ORDERED: Nitro 2% OINT* (Nitroglycerin) 1 INCH/PAK PAK TOPICAL ONE (16:39)
[2019-02-05 17:29] LABS: Troponin I 0.39 ng/mL (<0.04)
[2019-02-05] MEDS ORDERED: Heparin DRIP 25,000 UNITS(*) 25,000 UNITS/500 ML BAG IV SCH (17:30)
[2019-02-05] MEDS ORDERED: nitroGLYCERIN DRIP* 25,000 MCG/250 ML BTL IV ONE (17:36)
[2019-02-05] MEDS ORDERED: Atorvastatin* 80 MG TAB PO ONE (17:43)
[2019-02-05] MEDS ORDERED: nitroGLYCERIN DRIP* 25,000 MCG/250 ML BTL ONE (17:49)
[2019-02-05] MEDS ORDERED: Heparin VIAL(*) 5000 UNITS/ML VIAL (FIVE THOUSAND) IV PRN (17:54)
[2019-02-05] MEDS ORDERED: Atorvastatin* 40 MG TAB PO SCH (18:00)
[2019-02-05] MEDS ORDERED: Magnesium Sulfate 1 GM IV* 1 GM/100 ML BAG IV ONE (18:12)
[2019-02-05 18:15] LABS: C Reactive Protein 61.25 mg/L (<8.01); Cholesterol 167 mg/dL; HDL Cholesterol 60.8 mg/dL; LDL Cholesterol 87 mg/dL; Triglycerides 94 mg/dL
[2019-02-05] MEDS ORDERED: Heparin DRIP 25,000 UNITS(*) 25,000 UNITS/500 ML BAG ONE (18:32)
[2019-02-05 18:35] LABS: INR 1.13 (0.77-1.02)
[2019-02-05 18:38] LABS: Activated Partial Thrombo Time 124.2 seconds (26.0-36.3)
[2019-02-05 19:35] LABS: Erythrocyte Sed Rate 36 mm/Hr (0-29)
--- NOTE | 2019-02-05 20:18 | HP ---
HISTORY AND PHYSICAL: DATE OF ADMISSION: 02/05/19 ADMITTING PROVIDER: Joshua Suazo MD PRIMARY CARE PROVIDER: Dr. Robert Castle. OUTPATIENT CLEANING MATRON: Dr. Kat, remotely last seen in 2014. CHIEF COMPLAINT: Chest pressure/discomfort. 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 About a week ago, she fell and then fell again, had increased dizziness, presented to [facility], was diagnosed with pot ential urinary tract infection, given Cipro 250 b.i.d. for 3 days. She has been at home recovering, mostly more deconditioned than usual, spending a lot of time in her bed or chair and having some diff iculty getting up around. Of note, she uses a baseline walker, and also had E. coli greater than 100 ,000 along with Strep dysgalactiae group C 50 to 75,000 on that urine culture. She shortly after 10 a.m. morning of admission developed discomfort and pressure substernally that reached about 6/10. Sh e was just sitting at that time. It seems a bit worse with each breath, but denies shortness of esperanza th, radiation to the jaw, neck, shoulders, arms, or back. No diaphoresis. No nausea. She denies an y cough, fevers, chills. She presented to [facility], had initial troponin of 0.[address] Na wiggins of Cardiology was consulted. BNP was elevated to 629. She had leukocytosis of 16.8. EKG demons trated a sinus tachycardia with ventricular bigeminy. There were no ST changes on the conducted beat s. Dr. Porter consulted with Dr. Steen, who also looked at the EKG, recommended medical management, close observation, and Dr. Porter recommended heparin drip and nitroglycerin drip given her continue d chest discomfort. She says it is much improved, but then 5/10 on the rating currently. Her last kn own echocardiogram was in 2011 with normal LV function, EF of 50% to 60%, mild MR and TR. She had no rmal cardiac catheterizations in [place] in 2003. Stress test in 2009, no EKG changes. That was exer cise stress test. She denies any palpitations, racing heart rate, irregular beats. There was no [facility] documentation that the paroxysmal atrial fibrillation ever returned since 2003. PAST MEDICAL HISTORY: Hypertension, hypothyroidism, macular degeneration. PAST SURGICAL HISTORY: Includes hysterectomy, aneurysm repair, bilateral total hip replacements. MEDICATIONS: This is a not completely confirmed list. 1. Levothyroxine 50 mcg daily. 2. Captopril 12.5 mg p.o. daily. 3. Zantac 300 mg p.o. daily. 4. Tramadol 50 mg p.o. q.6 hours p.r.n., recently started by Dr. Castle for some left hip pain. 5. Lasix 20 mg daily. They have not brought their list and they are not sure if she takes Bentyl 20 mg p.o. t.i.d. p.r.n. It was not recently filled by her pharmacy. ALLERGIES: She reports a possible rash to injectable PENICILLIN. It looks like she has tolerated ci profloxacin and clindamycin in the past. FAMILY HISTORY: Her mother at age 62 of complications of blood dyscrasia. Father lived to be gr eater than 100. No siblings. SOCIAL HISTORY: She is a never smoker. Occasional glass of wine. 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 She d esires to be a full code. Her medical surrogate is Robert Nichols, her . REVIEW OF SYSTEMS: A complete 14-point review of systems negative except as per HPI. PHYSICAL EXAMINATION GENERAL APPEARANCE: No acute distress. VITAL SIGNS: Temperature 99.0; heart rate initially 109, currently in the mid 70s; blood pressure in itially 159/86, currently 140/80; respiratory rate 18 to 24; satting mid to high 90s on room air. HEENT: Normocephalic, atraumatic. Pupils are equally round and reactive to light. Extraocular motio ns intact. No scleral icterus. Moist mucous membranes. NECK: Supple. No cervical lymphadenopathy. LUNGS: Clear to auscultation bilaterally with no wheezing, rales, or rhonchi. CARDIOVASCULAR: Irregularly irregular with bigeminy. No murmurs, rubs, or gallops. ABDOMEN: Soft, nontender, nondistended. EXTREMITIES: Warm and well perfused. No peripheral edema. NEUROLOGIC: Moving all extremities. Cranial nerves II through XII intact. SKIN: No lesions. No rashes. DIAGNOSTIC STUDIES/LAB DATA: White count 16.8, hemoglobin 12.9, hematocrit 38, platelets 312. Sodi um 132, potassium 4.0, chloride 100, carbon dioxide 25, BUN 16, creatinine 0.68, glucose 119, lactic acid 1.0, calcium 9.0, magnesium 1.9. Total bili 0.6, AST 16, ALT 15, alk phos 62. CK is 70, CK-MB 2.1. Troponin 0.43, repeat 0.39. BNP is 629. TSH is 4.09. Imaging: Chest x-ray demonstrated no active cardiopulmonary disease. EKG at 2:21 showed sinus tachycardia with ventricular bigeminy. No ST elevations or depressions on t he conducted beats. Left axis deviation. She also had recent left lower leg x-ray on 01/30/19, which showed chronic findings as described abov e without radiologic apparent acute fracture or other radiographic apparent abnormality, and a knee x -ray same date 01/30/19, which showed degenerative findings. ASSESSMENT AND PLAN: Geovanna Nichols is an 88-year-old female with past medical history of hypertension, hypothyroidism, resolved viral cardiomyopathy and transient paroxysmal atrial fibrillation, presenti ng with chest pressure, nonexertional, though she has been very debilitated over the last week, eleva christiano troponin at 0.43 and ventricular bigeminy which is new from 01/30/19, although she did have efraín ture ventricular contractions at that date. Appreciate recommendations from Dr. Porter and Dr. Calvin hebert. We are treating her medically. Trend her troponins every 3 hours for a total of 3 until peak or c hest pain-free. She is being started on a heparin drip and nitro drip as per Dr. Porter's recommendat ions. She is getting atorvastatin, she got 80 already, continue [address] Porter's recomme ndations. Adding on a lipid panel and hemoglobin A1c. She got 50 of metoprolol tartrate p.o. and we are continuing 25 q.6 hours. Heart rates have improved. I am going to hold her captopril until the morning given the initiation of the nitro drip that may need to be stopped if she becomes hypotensive . Her symptoms are slightly atypical. Consideration for demand ischemia in the setting of her recen t infection last week with urinary tract infection versus some possible milder congestive heart failu re given the pressure with deep breaths, though she denies a pleuritic pain per se. I am going to co ntinue her Lasix starting tomorrow 20 mg daily. She got 325 aspirin in the field, continue 81 mg paolo ly. Repeat EKGs with troponin and again in the morning and get a transthoracic echocardiogram. She will be n.p.o. with ice chips. For the leukocytosis, she got a blood culture. I am adding on a urin e culture. The Strep dysgalactiae was sensitive to Levaquin, not read out for the ciprofloxacin. Fol low up the UA, she denies any dysuria, but could empirically start ceftriaxone, which would cover bot h those organisms. I am going to go ahead and do that given her generalized fatigue and her leukocyt osis. She is a full code. Medical surrogate is her , Robert Nichols. [id number]/[facility] #: [id number]
[2019-02-05 20:24] LABS: Urine Appearance Cloudy; Urine Bilirubin Negative (Negative); Urine Blood Negative (Negative); Urine Color Amber; Urine Glucose Negative (Negative); Urine Ketones Negative (Negative); Urine Nitrite Negative (Negative); Urine Protein Negative (Negative); Urine Specific Gravity 1.013 (1.010-1.030); Urine Urobilinogen Negative (Negative)
--- NOTE | 2019-02-05 20:42 | CONS ---
CC: Dr. Mook Porter CARDIOLOGY CONSULTATION: DATE OF CONSULT: 02/05/19 CONSULTING PROVIDER: Dr. Pittman. REASON FOR EVALUATION: Chest pain. HISTORY OF PRESENT ILLNESS: This is a very pleasant 88-year-old woman who was in her usual state of health until about a week ago, when she had a mechanical fall and banged her left lower leg. She was seen in the emergency room and discharged home. She was noted to have an EKG with frequent PVCs and had been told of extra beats in the past over the last couple years. Today, she was sitting in her home at about 9 a.m. resting and noticed she had substernal chest pressures possibly associated with shortness of breath. Because of those symptoms, she decided to come to the emergency room. She came to the emergency room this afternoon and was noted to have a bigeminy with some nonspecific lateral ST depressions. She was also hypertensive. She was given IV heparin, oral beta marla, and nitrates. She had called the deck molder and initially had some improvement in her pain from 5/10 to 3/10 or so, but continues to have some chest pressure. She thinks it may be worse when she walks to go to the bathroom or when she takes more breaths. She denies any sour taste, gas. No syncope or near syncope. No palpitations. Normally, she lives at home with her of 65 plus years and usually can drive and walk to the supermarket and walk through the supermarket without a problem. She denies orthopnea or PND. No hematemesis, hematochezia. PAST MEDICAL HISTORY: Includes hypertension, elevated cholesterol with high HDL. She said in 2003 she was seen at a hospital in [place] for what she said was atrial fibrillation and underwent a cardiac catheterization. She was told of no significant disease, although we do not have those reports. She denies diabetes. Denies renal insufficiency. PAST SURGICAL HISTORY: Includes bilateral hip replacements, hysterectomy, cystocele repair, cataracts. MEDICATIONS: Her medications at home include: 1. [place]-3 two caps twice a day. 2. Ferrous sulfate 325 a day. 3. Multivitamin 1 a day. 4. Synthroid 50 mcg a day. 5. Captopril 12.5 b.i.d. 6. Ranitidine 300 mg daily. 7. Dicyclomine 20 mg t.i.d. p.r.n. 8. Tramadol 50 mg q.6 p.r.n. 9. Furosemide 20 mg a day. ALLERGIES: She has no known allergies. FAMILY HISTORY: Her father at 100. Her mother at 62 of a blood dyscrasia according to the patient. SOCIAL HISTORY: She denies tobacco use. She is , has 2 children. She raised her kids and worked from the house and volunteered. REVIEW OF SYSTEMS: Review of systems x10 was negative, except as above. PHYSICAL EXAM: She is a well-developed, well-nourished female, in no apparent distress. No significant JVD. Atraumatic, normocephalic. Extraocular muscles intact. Sclerae anicteric. no cervical adenopathy. No thyromegaly. Blood pressures have been running in the 160s to 180s over 80s to 90s. At the time I saw her, the machine was reading 161/119 with a heart rate of 109; that came down to 140/80, O2 sat 98% on room air. Cardiac Exam: S1, S2 with a soft 1 to 2 /6 holosystolic murmur at the apex. Chest was clear after coughing. No CVAT. There was kyphosis. Abdomen: Bowel sounds present. Nontender. Femoral pulses intact without bruits. Distal pulses intact. Motor strength 5/5 bilaterally. Deep tendon reflexes 2/4. Alert and oriented x3. DIAGNOSTIC STUDIES/LAB DATA: Labs include white count elevated at 16.8, hemoglobin of 12.9, hematocrit of 38, platelet count of 312. Sodium low at 132 , potassium of 4, BUN of 16, creatinine of 0.68. Troponin elevated at 0.43 and a repeat was 0.39. BNP was elevated at 629. TSH of 4.09. EKG as mentioned revealed bigeminy with minor nonspecific lateral ST changes possibly due to the wandering baseline and the EKG from earlier today also showed sinus rhythm with bigeminy and the EKG from 01/30/19 revealed sinus rhythm with 2 PVCs and some APCs, no significant ST depressions, and there was poor R-wave progression. Chest x-ray revealed no active cardiopulmonary disease. IMPRESSION AND PLAN: My impression is that Ms. Nichols appears to have chest discomfort of unclear etiology in the setting of risk factors for coronary artery disease and elevated troponins and bigeminy. This could represent acute coronary syndrome and [id number] myocardial infarction. I have discussed the case with Dr. Pittman, with the patient, her who is at the bedside, as well as Dr. Steen; our vest tailor on-call. At this point, Dr. Steen is aware and available in case if emergency catheterization is necessary, but suggested medical therapy for the time being. 1. continue with nitrates, possibly IV nitrates, blood pressure control, beta blockers, and aspirin as you are doing. 2. defer Plavix for the time being in case she turns out to have surgical disease. 3. add a statin. 4. check her sed rate and CRP and lipids. 5. monitor her in the ICU and consider a cath if her situation changes and warrants it. 6.would avoid nonsteroidal anti-inflammatories. Further recommendations will depend on her clinical course. [id number]/[facility] #: [id number] JULIET
[2019-02-05] MEDS: cefTRIAXone(*) 1 GM in NS 0.9% 50 ML* 50 ML IVPB SCH (22:24)
[2019-02-06] MEDS: Metoprolol Tartrate TAB* 25 MG PO SCH ×4 (00:57→16:22)
--- NOTE | 2019-02-06 03:14 | PN ---
Progress Note - Progress Note Date of Service: 02/06/19 Note: Cross cover: Called that ptt was subtherapeutic. Review indicates ptt has been low since 8pm and per RN may not have been restarted after leaving ED. Unclear to this author why it was not continued and/or restarted with last ptt and 8pm when that was low. Restarting now and continue with ordered titration/bolus protocol.
[2019-02-06 05:30] LABS: Hematocrit 35 % (33-41); Hemoglobin 11.5 g/dL (12.0-16.0); Mean Corpuscular HGB Conc 33 g/dL (31-36); Mean Corpuscular Hemoglobin 31 pg (27-31); Mean Corpuscular Volume 95 fL (80-97); Mean Platelet Volume 10.1 fL (7.4-10.4); Platelet Count 287 10^3/uL (150-450); Red Blood Count 3.68 10^6 /uL (3.70-4.87); Red Cell Distribution Width 13 % (10.5-15)
[2019-02-06 05:39] LABS: ABS Basophils 0.1 10^3/ul (0-0.2); ABS Eosinophils 0.1 10^3/ul (0-0.6); ABS Lymphocytes 2.3 10^3/ul (1.0-4.8); ABS Monocytes 1.6 10^3/ul (0-0.8); ABS Nucleated RBC 0 10^3/ul; Eosinophil % 0.3 %; Lymphocyte % 12.6 %; Nucleated Red Blood Cells % 0
[2019-02-06] MEDS: Levothyroxine TAB* 50 MCG TAB PO SCH (06:45)
[2019-02-06] MEDS: Aspirin 81 mg CHEW TAB* 81 MG TAB.CHEW PO SCH (08:36)
[2019-02-06] MEDS: Furosemide TAB* 20 MG PO SCH (08:36)
[2019-02-06] MEDS ORDERED: Captopril TAB* 12.5 MG PO SCH (09:00)
[2019-02-06 13:16] LABS: BUN/Creatinine Ratio 23.5 (8-20); Calcium 8.9 mg/dL (8.6-10.3); EGFR African American 80.6 (>60); EGFR Non-African American 66.6 (>60); Potassium 3.7 mmol/L (3.5-5.0)
[2019-02-06 13:20] LABS: Troponin I 0.17 ng/mL (<0.04)
--- NOTE | 2019-02-06 15:19 | PN ---
Subjective Date of Service: 02/06/19 Interval History: Denies any further CP. Transferred from ICU.Off Nitro drip and per d/w cardiology heparin gtt to be stopped Objective Active Medications: Aspirin (Aspirin 81 Mg Chew Tab*) 81 mg PO DAILY [facility] Last Admin: 02/06/19 08:36 Dose: 81 mg Atorvastatin Calcium (Lipitor*) 40 mg PO 1701 [facility] Furosemide (Lasix Tab*) 20 mg PO DAILY [facility] Last Admin: 02/06/19 08:36 Dose: 20 mg Heparin Sodium (Porcine) (Heparin Vial(*)) 5,000 units SUBCUT Q12HR [facility] Ceftriaxone Sodium 1 gm/ (Sodium Chloride) 50 mls @ 200 mls/hr IVPB Q24H [facility] Last Admin: 02/05/19 22:24 Dose: 200 mls/hr Levothyroxine Sodium (Synthroid Tab*) 50 mcg PO DAILY@0600 [facility] Last Admin: 02/06/19 06:45 Dose: 50 mcg Lisinopril (Prinivil Tab*) 2.5 mg PO DAILY [facility] Metoprolol Tartrate (Lopressor Tab*) 25 mg PO Q6H [facility] Last Admin: 02/06/19 10:52 Dose: 25 mg Vital Signs - 8 hr 02/06/19 02/06/19 02/06/19 07:15 07:30 07:45 Temperature Pulse Rate 84 78 72 Respiratory 21 19 21 Rate Blood Pressure 117/57 120/58 115/66 (mmHg) O2 Sat by Pulse 96 96 96 Oximetry 02/06/19 02/06/19 02/06/19 07:52 08:00 08:02 Temperature 96.9 F Pulse Rate 80 79 Respiratory 19 17 Rate Blood Pressure 106/70 (mmHg) O2 Sat by Pulse 96 95 Oximetry 02/06/19 02/06/19 02/06/19 08:16 08:30 08:58 Temperature Pulse Rate 72 70 Respiratory 18 21 15 Rate Blood Pressure 135/64 114/59 (mmHg) O2 Sat by Pulse 99 96 Oximetry 02/06/19 02/06/19 02/06/19 09:00 09:01 09:17 Temperature Pulse Rate 78 89 72 Respiratory 23 18 18 Rate Blood Pressure 118/74 117/49 (mmHg) O2 Sat by Pulse 95 97 97 Oximetry 02/06/19 02/06/19 02/06/19 09:31 09:45 10:00 Temperature Pulse Rate 70 92 Respiratory 18 17 22 Rate Blood Pressure 118/60 124/75 (mmHg) O2 Sat by Pulse 97 92 Oximetry 02/06/19 02/06/19 02/06/19 10:01 10:31 11:00 Temperature Pulse Rate 78 82 Respiratory 16 19 21 Rate Blood Pressure 111/83 112/49 (mmHg) O2 Sat by Pulse 95 92 Oximetry 02/06/19 02/06/19 11:01 12:12 Temperature 99.7 F Pulse Rate 87 Respiratory 24 16 Rate Blood Pressure 122/57 (mmHg) O2 Sat by Pulse 97 Oximetry Oxygen Devices in Use Now: None Eyes: No Scleral Icterus Ears/Nose/Mouth/Throat: NL Teeth, Lips, Gums Neck: NL Appearance and Movements; NL JVP Respiratory: Symmetrical Chest Expansion and Respiratory Effort, Clear to Auscultation Cardiovascular: NL Sounds; No Murmurs; No JVD, RRR Abdominal: NL Sounds; No Tenderness; No Distention Extremities: No Edema Skin: No Rash or Ulcers Neurological: Alert and Oriented x 3 Result Diagrams: 02/06/19 05:20 02/06/19 12:40 Microbiology and Other Data: Microbiology 02/05/19 14:52 Aerobic Blood Culture - Preliminary Blood Venous No Growth Day 1 Anaerobic Blood Culture - Preliminary No Growth Day 1 02/05/19 20:46 Nasal Screen MRSA (PCR) - Final Nasal Mrsa Not Detected Assess/Plan/Problems-Billing Assessment: - Patient Problems (1) NSTEMI (non-ST elevated myocardial infarction) Current Visit: Yes Status: Acute Code(s): I21.4 - NON-ST ELEVATION (NSTEMI) MYOCARDIAL INFARCTION SNOMED Code(s): 23235709 Comment: NSTEMI considered Troponins trended down ?Pericarditis CP resolved Off nitro drip Off Heparin drip Echo pending Per d/w Cardiology, poss Stress test on Friday to for ischemia and further management based on clinical course On Aspirin, Metoprolol and Lisinopril (2) Pericarditis Current Visit: Yes Status: Acute Code(s): I31.9 - DISEASE OF PERICARDIUM, UNSPECIFIED SNOMED Code(s): 6276399 Comment: Diffuse ST seg elevation c/w possible pericarditis Appreciate Dr Porter input Plan as above CP free currently (3) UTI (urinary tract infection) Current Visit: Yes Status: Acute Comment: Poss UTI Urine cx pending Urine cx from 01/30 growing E coli and Strep Dysgalacticae Continue Emperic Ceftriaxone for now
[2019-02-06 17:01] LABS: Activated Partial Thrombo Time 28.1 seconds (26.0-36.3); INR 1.12 (0.77-1.02)
[2019-02-06] MEDS ORDERED: Atorvastatin* 40 MG TAB PO SCH (17:01)
[2019-02-06] MEDS: Heparin VIAL(*) 5000 UNITS/ML VIAL (FIVE THOUSAND) SUBCUT SCH (20:05)
[2019-02-06] MEDS: cefTRIAXone(*) 1 GM in NS 0.9% 50 ML* 50 ML IVPB SCH (20:05)
[2019-02-07] MEDS: Metoprolol Tartrate TAB* 25 MG PO SCH ×5 (00:11→22:56)
[2019-02-07] MEDS: Levothyroxine TAB* 50 MCG TAB PO SCH (05:19)
[2019-02-07 06:26] LABS: ABS Basophils 0.1 10^3/ul (0-0.2); ABS Eosinophils 0.1 10^3/ul (0-0.6); ABS Lymphocytes 2.5 10^3/ul (1.0-4.8); ABS Monocytes 1.5 10^3/ul (0-0.8); ABS Nucleated RBC 0 10^3/ul; Eosinophil % 0.7 %; Hematocrit 35 % (33-41); Hemoglobin 11.6 g/dL (12.0-16.0); Lymphocyte % 16.2 %; Mean Corpuscular HGB Conc 33 g/dL (31-36); Mean Corpuscular Hemoglobin 31 pg (27-31); Mean Corpuscular Volume 95 fL (80-97); Mean Platelet Volume 11.9 fL (7.4-10.4); Nucleated Red Blood Cells % 0; Platelet Count 244 10^3/uL (150-450); Red Blood Count 3.72 10^6 /uL (3.70-4.87); Red Cell Distribution Width 13 % (10.5-15); White Blood Count 15.3 10^3/uL (3.5-10.8)
[2019-02-07 06:47] LABS: Anion Gap 9 mmol/L (2-11); BUN/Creatinine Ratio 30.8 (8-20); Blood Urea Nitrogen 20 mg/dL (6-24); C Reactive Protein 158.77 mg/L (<8.01); CO2 Carbon Dioxide 25 mmol/L (22-32); Calcium 8.8 mg/dL (8.6-10.3); Chloride 102 mmol/L (101-111); EGFR African American 103.8 (>60); EGFR Non-African American 85.8 (>60); Glucose 113 mg/dL (70-100); Potassium 3.3 mmol/L (3.5-5.0); Sodium 136 mmol/L (135-145)
--- NOTE | 2019-02-07 06:49 | PN ---
Hospitalist Progress Note Date of Service: 02/07/19 Called by RN for increasing troponins on assymptomatic patient. Ordered repeat VS and EKG.
[2019-02-07] MEDS: Furosemide TAB* 20 MG PO SCH (08:39)
[2019-02-07] MEDS: Lisinopril TAB* 5 MG PO SCH (08:39)
[2019-02-07] MEDS: Aspirin 81 mg CHEW TAB* 81 MG TAB.CHEW PO SCH (08:40)
[2019-02-07] MEDS: Heparin VIAL(*) 5000 UNITS/ML VIAL (FIVE THOUSAND) SUBCUT SCH ×2 (08:40→20:35)
[2019-02-07 08:43] LABS: Erythrocyte Sed Rate 60 mm/Hr (0-29)
[2019-02-07] MEDS ORDERED: Potassium Chloride LIQUID* 20 MEQ PACKET PO ONE (09:38)
[2019-02-07] MEDS ORDERED: KCL 10 MEQ/50 ML IVPREMIX* 10 MEQ/50 ML BAG IV ONE (10:00)
--- NOTE | 2019-02-07 12:22 | ECHO ---
Patient: LOUIS LOZADA [facility] Rec#: [id number] : 1930 Date: 02/07/2019 Age: 88y Height: 160 cm / 63.0 in Weight: 63 kg / 138.9 lbs Sex: F BSA: 1.66 Room#: 440 Admit Date#: 02/05/2019 Type: Inpatient Referring: RANDY Reading: Mook Porter MD Ironer: Shena Aldridge RDCS,RDMS CC: Robert Castle MD Transthoracic Echocardiogram Indication: CP BP: 131/56 HR: 86 Rhythm: NSR with PVCs Findings History: HTN, HLD, VPC's,CP, Troponin elevation. Technical Comments: The study quality is good. Left Ventricle: The left ventricular chamber size is normal. Mild concentric left ventricular hypertrophy is observed. There is normal left ventricular systolic function.LV function assessment limited by ectopy. Probable overall normal LV funtion. The estimated ejection fraction is 55-60%. Abnormal left ventricular diastolic function is observed. The left ventricular diastolic filling pattern is consistent with pseudonormalization. Left Atrium: The left atrium is not well visualized. The left atrium is mild to moderately dilated. Right Ventricle: The right ventricle wall thickness is normal. The right ventricular cavity size is normal. The right ventricular global systolic function is mildly reduced. Right Atrium: The right atrial cavity size is normal. Aortic Valve: The aortic valve is trileaflet. Systolic excursion of the aortic valve is normal. There is a trace of aortic regurgitation. There is no evidence of aortic stenosis. Mitral Valve: The mitral valve leaflets are mildly thickened. There is a trace of mitral regurgitation. Tricuspid Valve: The tricuspid valve leaflets are normal. There is moderate tricuspid regurgitation. There is evidence of mild pulmonary hypertension. Pulmonic Valve: The pulmonic valve appears normal. There is trace to mild pulmonic regurgitation. Pericardium: A trivial pericardial effusion is visualized. There are no signs of significant hemodynamic compromise. Aorta: The aortic root appears normal. There is no dilatation of the aortic arch. Pulmonary Artery: The main pulmonary artery is not well visualized. Venous: The inferior vena cava appears normal in size. There is less than 50% respiratory change in the inferior vena cava dimension. Summary: There was not any prior study for comparison. Conclusions Mild concentric left ventricular hypertrophy is observed. The estimated ejection fraction is 55-60%. LV function assessment limited by ectopy. Probable overall normal LV funtion. The left ventricular diastolic filling pattern is consistent with pseudonormalization. The left atrium is mild to moderately dilated. The right ventricular global systolic function is mildly reduced. There is a trace of mitral regurgitation. There is a trace of aortic regurgitation. There is moderate tricuspid regurgitation. There is evidence of mild pulmonary hypertension. A trivial pericardial effusion is visualized. There are no signs of significant hemodynamic compromise. Measurements Name Value Normal Range RVIDd (AP) 2D 2.7 cm (0.9 - 2.6) RVDdMajor (2D) 3.9 cm (2.2 - 4.4) RAd ISD 4CH 3.6 cm (3.4 - 4.9) RA (A4C)W 3.5 cm (2.9 - 4.6) IVSd (2D) 1.1 cm (0.6 - 1) LVPWd (2D) 1 cm (0.6 - 1) LVIDd (2D) 3.7 cm (3.6 - 5.4) LVIDs (2D) 2.6 cm - LV FS (2D) 30 % (25 - 45) Aortic Annulus 2.1 cm (1.4 - 2.6) Ao root diameter (2D) 2.9 cm (2.1 - 3.5) Ascending Ao 3 cm (2.1 - 3.4) Aortic arch 2.3 cm (1.8 - 3.4) LA dimension (AP) 2D 3.2 cm (2.3 - 3.8) Name Value Normal Range MV E-wave Vmax 0.6 m/sec - MV deceleration time 140 msec - MV A-wave Vmax 0.5 m/sec - MV E:A ratio 1.2 ratio - LV septal e' Vmax 0.07 m/sec - LV lateral e' Vmax 0.07 m/sec - LV E:e' septal ratio 9 ratio - LV E:e' lateral ratio 9 ratio - Name Value Normal Range AV Vmax 0.8 m/sec - AV VTI 13.5 cm - AV peak gradient 3 mmHg - AV mean gradient 2 mmHg - LVOT Vmax 0.6 m/sec - LVOT VTI 9 cm - LVOT peak gradient 1.4 mmHg - LVOT mean gradient 1 mmHg - LEO Vmax 0.4 m/sec - Name Value Normal Range TR Vmax 3 m/sec - TR peak gradient 36 mmHg - RAP 3 mmHg - RVSP 39 mmHg - IVC diameter 1.5 cm - Name Value Normal Range PV Vmax 0.6 m/sec - PV peak gradient 1.4 mmHg -
--- NOTE | 2019-02-07 14:52 | PN ---
Subjective Date of Service: 02/07/19 Interval History: No further CP.CRP increasing.No sob. Discussed symptoms and events over the last 2 weeks with the pt and family. c/o L hip pain with radiation to leg and falls *2 in last 2 weeks Objective Active Medications: Aspirin (Aspirin 81 Mg Chew Tab*) 81 mg PO DAILY [facility] Last Admin: 02/07/19 08:40 Dose: 81 mg Heparin Sodium (Porcine) (Heparin Vial(*)) 5,000 units SUBCUT Q12HR [facility] Last Admin: 02/07/19 08:40 Dose: 5,000 units Levothyroxine Sodium (Synthroid Tab*) 50 mcg PO DAILY@0600 [facility] Last Admin: 02/07/19 05:19 Dose: 50 mcg Lisinopril (Prinivil Tab*) 2.5 mg PO DAILY [facility] Last Admin: 02/07/19 08:39 Dose: 2.5 mg Metoprolol Tartrate (Lopressor Tab*) 25 mg PO Q6H [facility] Last Admin: 02/07/19 10:33 Dose: 25 mg Simvastatin (Zocor(Nf)) 10 mg PO DAILY [facility] Vital Signs - 8 hr 02/07/19 02/07/19 02/07/19 06:53 06:54 07:15 Temperature 98.0 F 98 F 98.4 F Pulse Rate 56 84 72 Respiratory 18 18 Rate Blood Pressure 131/56 131/56 129/59 (mmHg) O2 Sat by Pulse 94 94 Oximetry 02/07/19 08:00 Temperature Pulse Rate Respiratory 17 Rate Blood Pressure (mmHg) O2 Sat by Pulse Oximetry Oxygen Devices in Use Now: None Eyes: No Scleral Icterus Ears/Nose/Mouth/Throat: NL Teeth, Lips, Gums Neck: NL Appearance and Movements; NL JVP Respiratory: Symmetrical Chest Expansion and Respiratory Effort, Clear to Auscultation Cardiovascular: NL Sounds; No Murmurs; No JVD, RRR Abdominal: NL Sounds; No Tenderness; No Distention Extremities: No Edema Skin: No Rash or Ulcers Neurological: Alert and Oriented x 3 Result Diagrams: 02/07/19 05:51 02/07/19 05:50 Microbiology and Other Data: Microbiology 02/05/19 14:52 Aerobic Blood Culture - Preliminary Blood Venous No Growth Day 1 Anaerobic Blood Culture - Preliminary No Growth Day 1 02/05/19 20:46 Nasal Screen MRSA (PCR) - Final Nasal Mrsa Not Detected Assess/Plan/Problems-Billing Assessment: - Patient Problems (1) Myocarditis Current Visit: Yes Status: Acute Code(s): I51.4 - MYOCARDITIS, UNSPECIFIED SNOMED Code(s): 67781294 Comment: Possible Myocarditis Appreciate Dr Porter's input Pt c/o pleuritic cp and pain in sternum area Resolved currently Poss Viral in origin CRP and ESR high, troponin trended down Will trend Will check CPK,Lyme,Aldolase,ELVIS,Influenza,anti ok Can consider further w/u if warranted also based on echo ( pending) Plan for Stress test tomorrow EKG with some diffuse ST elevation yesterday/pericarditis type Family somwhat concerned about dvt/ PE. No swelling in LE, pain and cp located in sternum per pt description all c/w myocarditis, inflammation.Poss viral or autoimmune trigger. Based on stress test and Echo, can consider further w/u if warranted. (2) NSTEMI (non-ST elevated myocardial infarction) Current Visit: Yes Status: Acute Code(s): I21.4 - NON-ST ELEVATION (NSTEMI) MYOCARDIAL INFARCTION SNOMED Code(s): 25846293 Comment: NSTEMI considered initially Troponins trended down Pic appears more c/w Myocarditis Pl see above CP resolved Off nitro drip Off Heparin drip Echo pending Stress test on Friday and further management based on clinical course On Aspirin, Metoprolol and Lisinopril (3) UTI (urinary tract infection) Current Visit: Yes Status: Acute Comment: Urine cx from 01/30 growing E coli and Strep Dysgalacticae Recent UTI UA clear( repeat) Urine cx pending Per d/w pt, had an antibiotic course Was on emperic ceftriaxone yesterday.Repeat UA clear and some diarrhea.Will d/c (4) Hip pain Current Visit: Yes Status: Acute Code(s): M25.559 - PAIN IN UNSPECIFIED HIP SNOMED Code(s): 12571392 Comment: L Hip pain with radiation.Implants hip. s/p 2 recent falls X ray hip and Left LE to r/o fracture PT/ OT Ongoing balance issues (5) Hypokalemia Current Visit: Yes Status: Acute Code(s): E87.6 - HYPOKALEMIA SNOMED Code( s): 90425286 Comment: Replace K
[2019-02-07] MEDS: Acetaminophen ADULT LIQ* 650 MG/20.3 ML UDC PO PRN (21:52)
[2019-02-07 22:59] LABS: Troponin I 0.16 ng/mL (<0.04)
[2019-02-08 00:03] LABS: Influenza A Molecular NEGATIVE (Negative); Influenza B Molecular NEGATIVE (Negative)
[2019-02-08] MEDS: Metoprolol Tartrate TAB* 25 MG PO SCH ×4 (06:02→23:09)
[2019-02-08] MEDS: Levothyroxine TAB* 50 MCG TAB PO SCH (06:12)
[2019-02-08 06:26] LABS: ALT 61 U/L (7-52); AST 33 U/L (13-39); Albumin 3.2 g/dL (3.2-5.2); Albumin/Globulin Ratio 1.1 (1-3); Alkaline Phosphatase 86 U/L (34-104); Anion Gap 7 mmol/L (2-11); BUN/Creatinine Ratio 29.3 (8-20); Blood Urea Nitrogen 22 mg/dL (6-24); C Reactive Protein 133.25 mg/L (<8.01); CO2 Carbon Dioxide 24 mmol/L (22-32); Calcium 8.8 mg/dL (8.6-10.3); Chloride 106 mmol/L (101-111); EGFR Non-African American 72.8 (>60); Globulin 2.9 g/dL (2-4); Glucose 102 mg/dL (70-100); Potassium 3.7 mmol/L (3.5-5.0); Sodium 137 mmol/L (135-145); Total Protein 6.1 g/dL (6.4-8.9)
[2019-02-08 06:33] LABS: Troponin I 0.09 ng/mL (<0.04)
[2019-02-08 08:21] LABS: CRP High Sensitivity 136.77 mg/L (<2.00)
[2019-02-08] MEDS: Aspirin 81 mg CHEW TAB* 81 MG TAB.CHEW PO SCH (09:08)
[2019-02-08] MEDS: Heparin VIAL(*) 5000 UNITS/ML VIAL (FIVE THOUSAND) SUBCUT SCH ×2 (09:08→20:26)
[2019-02-08] MEDS: Acetaminophen ADULT LIQ* 650 MG/20.3 ML UDC PO PRN ×2 (09:08→23:09)
[2019-02-08] MEDS ORDERED: Regadenoson* 0.4 MG/5 ML SYRINGE ONE (10:22)
[2019-02-08] MEDS: Lisinopril TAB* 5 MG PO SCH (11:49)
--- NOTE | 2019-02-08 13:40 | PN ---
Subjective Date of Service: 02/08/19 Interval History: f/u chest pain, abnormal troponin patient has no further chest pain ambulating in hallways without symptoms fever of 100.5 last PM Lexiscan stress MPI reviewed and was entirely normal. Medications Active Medications: Acetaminophen (Tylenol Adult Liq*) 650 mg PO Q6H PRN PRN Reason: FEVER/PAIN Last Admin: 02/08/19 09:08 Dose: 650 mg Aspirin (Aspirin 81 Mg Chew Tab*) 81 mg PO DAILY [facility] Last Admin: 02/08/19 09:08 Dose: 81 mg Heparin Sodium (Porcine) (Heparin Vial(*)) 5,000 units SUBCUT Q12HR [facility] Last Admin: 02/08/19 09:08 Dose: 5,000 units Levothyroxine Sodium (Synthroid Tab*) 50 mcg PO DAILY@0600 [facility] Last Admin: 02/08/19 06:12 Dose: 50 mcg Lisinopril (Prinivil Tab*) 2.5 mg PO DAILY [facility] Last Admin: 02/08/19 11:49 Dose: 2.5 mg Metoprolol Tartrate (Lopressor Tab*) 25 mg PO Q6H [facility] Last Admin: 02/08/19 11:48 Dose: 25 mg Simvastatin (Zocor(Nf)) 10 mg PO DAILY [facility] Objective Vital Signs: Temp Pulse Resp BP Pulse Ox 97.8 F 72 17 128/54 95 02/08/19 11:57 02/08/19 11:57 02/08/19 11:57 02/08/19 11:57 02/08/19 11:57 Oxygen Devices in Use Now: None Appearance: nad, pleasant Neck: NL Appearance and Movements; NL JVP, Trachea Midline Respiratory: Symmetrical Chest Expansion and Respiratory Effort, Clear to Auscultation Cardiovascular: NL Sounds; No Murmurs; No JVD, RRR, No Edema Abdominal: NL Sounds; No Tenderness; No Distention Extremities: No Edema Skin: No Rash or Ulcers Neurological: Alert and Oriented x 3 Laboratory Results: 02/07/19 05:51 02/08/19 05:34 INR (Anticoag Therapy) 1.12 (0.77-1.02) H 02/06/19 16:46 APTT 28.1 seconds (26.0-36.3) 02/06/19 16:46 Total Bilirubin 0.40 mg/dL (0.2-1.0) 02/08/19 05:34 AST 33 U/L (13-39) 02/08/19 05:34 ALT 61 U/L (7-52) H 02/08/19 05:34 Alkaline Phosphatase 86 U/L (34-104) 02/08/19 05:34 CK-MB (CK-2) 2.1 ng/mL (0.6-6.3) 02/05/19 14:36 B-Natriuretic Peptide 1101 pg/mL (<=100) H 02/07/19 16:54 Total Protein 6.1 g/dL (6.4-8.9) L 02/08/19 05:34 Albumin 3.2 g/dL (3.2-5.2) 02/08/19 05:34 Globulin 2.9 g/dL (2-4) 02/08/19 05:34 Albumin/Globulin Ratio 1.1 (1-3) 02/08/19 05:34 Triglycerides 94 mg/dL 02/05/19 14:36 Cholesterol 167 mg/dL 02/05/19 14:36 LDL Cholesterol 87 mg/dL 02/05/19 14:36 HDL Cholesterol 60.8 mg/dL 02/05/19 14:36 TSH 4.09 mcIU/mL (0.34-5.60) 02/05/19 14:36 02/05/19 02/05/19 02/05/19 14:36 16:57 20:08 Troponin I 0.43 H* 0.39 H* 0.30 H* 02/06/19 02/07/19 02/08/19 12:40 05:50 05:34 Troponin I 0.17 H* 0.16 H* 0.09 H* Assessment/Plan would continue with aspirin, statin and beta-marla, the latter dose can be decreased at discharge. Discussed uncertainty of definitive diagnosis with patient and . Given her history I would get an ultrasound of her lower extremities prior to discharge, discussed with Dr. [place]
[2019-02-08] MEDS: CMCS - Simvastatin TAB(NF) 10 MG TAB PO SCH (18:38)
--- NOTE | 2019-02-08 18:56 | PN ---
Subjective Date of Service: 02/08/19 Interval History: Last night with fever to 100.5. Pt denies symptoms and continues to deny symptoms to me today. Has gone for nuclear stress without concerning findings. Pending read of LE dopplers given recent inactivity and concern that symptoms could be from PE, since they are very unlikely to be from CAD given results of echo/stress test. Also likely she could have had a viral myocarditis. Objective Active Medications: Acetaminophen (Tylenol Adult Liq*) 650 mg PO Q6H PRN PRN Reason: FEVER/PAIN Last Admin: 02/08/19 09:08 Dose: 650 mg Aspirin (Aspirin 81 Mg Chew Tab*) 81 mg PO DAILY [facility] Last Admin: 02/08/19 09:08 Dose: 81 mg Heparin Sodium (Porcine) (Heparin Vial(*)) 5,000 units SUBCUT Q12HR [facility] Last Admin: 02/08/19 09:08 Dose: 5,000 units Levothyroxine Sodium (Synthroid Tab*) 50 mcg PO DAILY@0600 [facility] Last Admin: 02/08/19 06:12 Dose: 50 mcg Lisinopril (Prinivil Tab*) 2.5 mg PO DAILY [facility] Last Admin: 02/08/19 11:49 Dose: 2.5 mg Metoprolol Tartrate (Lopressor Tab*) 25 mg PO Q6H [facility] Last Admin: 02/08/19 17:46 Dose: 25 mg Simvastatin (Zocor(Nf)) 10 mg PO DAILY [facility] Last Admin: 02/08/19 18:38 Dose: 10 mg Vital Signs - 8 hr 02/08/19 02/08/19 02/08/19 11:57 15:00 17:40 Temperature 97.8 F 98.2 F Pulse Rate 72 75 78 Respiratory 17 20 Rate Blood Pressure 128/54 98/51 134/53 (mmHg) O2 Sat by Pulse 95 93 Oximetry Oxygen Devices in Use Now: None Result Diagrams: 02/07/19 05:51 02/08/19 05:34 Microbiology and Other Data: Microbiology 02/05/19 14:52 Aerobic Blood Culture - Preliminary Blood Venous No Growth Day 1 Anaerobic Blood Culture - Preliminary No Growth Day 1 02/05/19 20:46 Nasal Screen MRSA (PCR) - Final Nasal Mrsa Not Detected Assess/Plan/Problems-Billing Assessment: - Patient Problems (1) Myocarditis Comment: Possible Myocarditis, most likely diagnosis if LE dopplers negative for DVT. - will clarify indication for ASA and statin give pt has no h/o CAD and primary ppx generally not indicated after 75 (and pt has a history of falls) - CRP and ESR high, troponin and fever trended down (2) Hypokalemia SNOMED Code(s): 93473648 Comment: Follow BMP and replete K (3) Hypertension Comment: - cont ROSE-I Status and Disposition: Likely home tomorrow.
[2019-02-08] MEDS ORDERED: Potassium Chloride LIQUID* 20 MEQ PACKET PO ONE (18:59)
[2019-02-09] MEDS: Metoprolol Tartrate TAB* 25 MG PO SCH (05:16)
[2019-02-09] MEDS: Levothyroxine TAB* 50 MCG TAB PO SCH (05:16)
[2019-02-09] MEDS: Loperamide CAP* 2 MG PO PRN ×2 (05:28→09:58)
[2019-02-09 06:43] LABS: ABS Basophils 0.1 10^3/ul (0-0.2); ABS Eosinophils 0.4 10^3/ul (0-0.6); ABS Lymphocytes 2.1 10^3/ul (1.0-4.8); ABS Monocytes 1.1 10^3/ul (0-0.8); ABS Nucleated RBC 0 10^3/ul; Eosinophil % 3.4 %; Hematocrit 39 % (33-41); Hemoglobin 12.3 g/dL (12.0-16.0); Lymphocyte % 19.5 %; Mean Corpuscular HGB Conc 32 g/dL (31-36); Mean Corpuscular Hemoglobin 31 pg (27-31); Mean Corpuscular Volume 99 fL (80-97); Mean Platelet Volume 10.5 fL (7.4-10.4); Nucleated Red Blood Cells % 0; Platelet Count 163 10^3/uL (150-450); Red Blood Count 3.94 10^6 /uL (3.70-4.87); Red Cell Distribution Width 14 % (10.5-15); White Blood Count 10.6 10^3/uL (3.5-10.8)
[2019-02-09 06:57] LABS: Anion Gap 10 mmol/L (2-11); CO2 Carbon Dioxide 20 mmol/L (22-32); Chloride 107 mmol/L (101-111); Potassium 4.6 mmol/L (3.5-5.0); Sodium 137 mmol/L (135-145)
[2019-02-09 07:02] LABS: BUN/Creatinine Ratio 27.8 (8-20); Blood Urea Nitrogen 20 mg/dL (6-24); EGFR African American 92.3 (>60); EGFR Non-African American 76.3 (>60); Glucose 98 mg/dL (70-100)
[2019-02-09 07:32] VITALS: BP 140/59
[2019-02-09] MEDS: Lisinopril TAB* 5 MG PO SCH (08:45)
[2019-02-09] MEDS: CMCS - Simvastatin TAB(NF) 10 MG TAB PO SCH (08:46)
[2019-02-09] MEDS: Heparin VIAL(*) 5000 UNITS/ML VIAL (FIVE THOUSAND) SUBCUT SCH (08:47)
[2019-02-09] MEDS: Aspirin 81 mg CHEW TAB* 81 MG TAB.CHEW PO SCH (08:47)
[2019-02-09] MEDS ORDERED: Metoprolol Succinate XL TAB* 25 MG PO SCH (11:00)
[2019-02-09 11:16] LABS: C Reactive Protein 103.71 mg/L (<8.01)
[2019-02-09 11:31] LABS: Troponin I 0.04 ng/mL (<0.04)
--- NOTE | 2019-02-09 12:29 | DS ---
CC: Dr. Robert Castle; Dr. Porter* DISCHARGE SUMMARY: DATE OF ADMISSION: 02/05/19 DATE OF DISCHARGE: 02/09/19 PRIMARY CARE PROVIDER: Dr. Robert Castle. DISPOSITION: To home. CONDITION: Good. PRIMARY DIAGNOSIS: Likely mild pericarditis. SECONDARY DIAGNOSES: 1. Hypertension. 2. Hypothyroid. CONSULTS: Cardiology, Dr. Porter. PERTINENT STUDIES: Troponin peak 0.43. TSH 4. Chest x-ray without active cardiopulmonary disease. TTE, 02/05/19: Significant for mild concentric LVH with estimated EF 55% to 60% . Probable overall normal LV function, LV diastolic filling pattern consistent with pseudonormalization. LA, mild to moderately dilated. RV global systolic function mildly reduced. Trace MR/AR. Moderate TR. There is evidence of mild pulmonary hypertension. Hip, pelvis x-ray: No evidence for fracture. Nuclear medicine scan, 02/08/19: Questionable small reversible defect of the lateral wall. EKG on day of admission with bigeminy and minor lateral ST changes. HISTORY OF PRESENT ILLNESS: Ms. 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 After her first fall one week ago, she was given Cipro for 3 days and felt as though she was recovering. Likely, this was given for concern for UTI. However, she was still having difficulty getting up and moving around. She does use a walker at baseline. On morning of re-presentation, she had developed chest discomfort and pressure substernally 6/10, getting worse with each breath, but denied shortness of breath or radiation to the jaw, neck, or shoulders. These symptoms were not associated with diaphoresis, nausea, or cough. HOSPITAL COURSE: In the emergency room, she was noted to have a troponin of 0.[address] Porter of Cardiology consulted. Her leukocytosis was noted to be 16.8 and an EKG with sinus tachycardia with ventricular bigeminy. Dr. Steen also consulted on the case and recommended medical management. So, she was initially started on heparin drip with nitroglycerin drip with her symptoms significantly improving. She was admitted to Medicine for further treatment. She was quickly able to come off both heparin and nitro drips and was free of symptoms by next day of admission. Of note her potassium was persistently low while hospitalized. So, her home furosemide was stopped given unclear indication. Her heparin drip was also discontinued given concern that this troponin elevation could be from infectious cause such as mild pericarditis. Cardiology recommended stress test to evaluate coronary artery disease, which came back with low likelihood of coronary artery disease. The patient immediately after weekend to undergo the stress test on Friday. She also had lower extremity Dopplers as troponin elevation, chest pain and tachycardia with fever are concerning for new PE and she had recent immobility after first fall. However, lower extremity Dopplers were negative for DVT. On day of discharge, the patient denied all symptoms and 10-point review of systems. She declined home services. Given no known coronary artery disease, decision was made with the patient to stop aspirin and the statin while she understands a stress test is not a definitive way to exclude coronary artery disease. She mentions that she had been on these 2 medications before and did not want to continue treatment to lower her risk of cardiovascular disease and this MD agreed, especially with aspirin cessation given history of recent falls. PHYSICAL EXAMINATION: The patient afebrile. Heart rate 60s, respirations 12, blood pressure 140/59, oxygen saturation 99% on room air. General: A well- appearing woman sitting in chair, reading a book, alert and conversant, interactive. HEENT: OP clear. Moist mucous membranes. Neck: No JVD. Heart : Regular rate and rhythm. No murmurs, gallops, or rubs. Lungs: Clear to auscultation bilaterally. Abdomen: Soft, nontender, nondistended. Lower Extremities: Warm and well perfused. No edema. DISCHARGE PLAN: The patient is to follow up with her PCP and also will follow up in Cardiology clinic with Dr. Porter. She will not be continued on aspirin and statin per conversation documented above. We will also hold her furosemide given the patient has remained euvolemic in the hospital without diuretics and was noted to have persistently low potassium according to the patient. She is to return to the hospital if she has recurrence of chest pain or fevers. We are also discontinuing her captopril to switch to a long-acting ROSE inhibitor for blood pressure control and starting a beta-marla. She should have her TSH checked in February. DISCHARGE MEDICATIONS: 1. Lisinopril 2.5 mg daily. 2. Metoprolol succinate 25 mg daily. 3. Levothyroxine 50 mcg daily. 4. Dicyclomine 20 mg t.i.d. p.r.n. 5. Tramadol 50 mg q.6 hours p.r.n. pain. 6. Ranitidine 300 mg p.o. daily p.r.n. reflux. 7. Multivitamins. 8. [place]-3 supplements. TIME SPENT: Approximately 60 minutes spent on discharge of the patient, more than half of which spent with care coordination at bedside for interview and exam. [id number]/CPS #: [id number] MTDD
== END 2019-02-09 12:00 | disposition home or self-care (01) | DRG 315 ==
LOC: ED 13:51 → ICU 18:04 → MEDTELE 02-06 10:37
PROVIDERS: ADMIT Internal Medicine; ATTEND Internal Medicine
PROC: 4A02XM4 Measurement of Cardiac Total Activity, External Approach (ICD-10-PCS; principal; 2019-02-08)
DX: I31.9 Disease of pericardium, unspecified (principal); N39.0 Urinary tract infection, site not specified; I51.4 Myocarditis, unspecified; E03.9 Hypothyroidism, unspecified; I10 Essential (primary) hypertension; M19.042 Primary osteoarthritis, left hand; M19.041 Primary osteoarthritis, right hand; Z96.643 Presence of artificial hip joint, bilateral; H35.30 Unspecified macular degeneration; I48.0 Paroxysmal atrial fibrillation; I49.3 Ventricular premature depolarization; M46.90 Unspecified inflammatory spondylopathy, site unspecified; H91.90 Unspecified hearing loss, unspecified ear; R79.1 Abnormal coagulation profile; B96.20 Unspecified Escherichia coli [E. coli] as the cause of diseases classified elsewhere; B95.4 Other streptococcus as the cause of diseases classified elsewhere; M25.552 Pain in left hip; R29.6 Repeated falls; R00.8 Other abnormalities of heart beat; I27.20 Pulmonary hypertension, unspecified; E87.6 Hypokalemia; Z97.4 Presence of external hearing-aid; Z98.61 Coronary angioplasty status; Z90.710 Acquired absence of both cervix and uterus; Z80.0 Family history of malignant neoplasm of digestive organs; Z87.891 Personal history of nicotine dependence; Z72.89 Other problems related to lifestyle; Z98.42 Cataract extraction status, left eye; Z98.41 Cataract extraction status, right eye
CPT/HCPCS: 36415; 71046; 78452; 80048; 80053; 80061; 81003; 82085; 82550; 82553; 83036; 83605; 83735; 83880; 84443; 84484; 85025; 85610; 85652; 85730; 86038; 86140; 86141; 86235; 86618; 87040; 87086; 87641; 93005; 93017; 93306; 93970; 97530; 99285; A9270-GY; A9502; G8978-GP-CK; G8979-GP-CI; G8987-GO-CJ; G8988-GO-CI; J0696; J1644; J2785; J3475; J3480